=== PATIENT | female | born 1960 ===

== ENCOUNTER 2025-03-23 08:10 | Outpatient (AMB) | payer BC, SELFPAY ==
--- OUTSIDE RECORDS SUMMARY | 2025-03-23 08:40 | XMS_ITS ---
Author Name [facility] Organization Unknown Care Team Organization Name Specialty Phone Email Start Date End Da te [facility] ERIC HOUSER Primary Care 05/28/2022 03/08/2024
--- OUTSIDE RECORDS SUMMARY | 2025-03-23 08:40 | XMS_ITS | Clinical Summary ---
Author Organization [facility] [address] [facility] lding Address [address] [place] [address] Phone Care Team Providers Care [facility] [employer] Name Role Phone Liberty Arriaga MD Primary Care Prov ider Allergies Active Allergy Reactions Criticality Noted Date Comments Famotidine Other Medium 08/28/2022 Reports facial swelling Other 11/15/2015 Yeast Seasonal allergies Sulfamethoxazole-Trimethopr im 11/15/2015 Medications pantoprazole (PROTONIX) 20 mg EC tablet Take 1 Tablet by mouth daily. Take in am on empty stomach, wait 30 mins and then eat to activate the medication 4 Active cholecalciferol (VITAMIN D-3) 25 mcg (1,000 unit) capsule Take by mouth. A ctive MULTIVITAMIN ORAL Take by mouth. Activ e albuterol HFA (ProAir HFA) 90 mcg/actuation inhalerIndicati ons:Acute cough Inhale 2 puffs by mouth every 4 (four) hours if needed for wheezing. 8.5 g 5 09/02/19 26 Active ketoconazole (NIZORAL) 2 % shampoo WASH IN SCALP TWO TO THREE TIMES PER WEEK. LET SIT FOR FIVE MINUTES, THEN WASH OUT. AVOID EYES 4 Active losartan (COZAAR) 50 mg tablet Take 1 tablet (50 mg total) by mouth 1 (one) time each day. 90 each 1 5 04/19/20 25 Active sertraline (ZOLOFT) 50 mg tablet Take 1 tablet (50 mg total) by mouth 1 (one) time each day. 90 each 1 5 04/19/20 25 Active spironolactone (ALDACTONE) 25 mg tablet Take 1 tablet (25 mg total) by mouth 1 (one) time each day. 90 each 1 5 04/19/20 25 Active atorvastatin (LIPITOR) 10 mg tablet Take 1 tablet (10 mg total) by mouth 1 (one) time each day. 90 each 1 5 04/19/20 25 Active nitrofurantoin, macrocrystal-mo nohydrate, (MACROBID) 100 mg capsule Take 1 capsule (100 mg total) by mouth 2 (two) times a day for 7 days. 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 Overview (06/30/2024): Right inferior mid eyelid follows with derm Seasonal allergies 11/21/2020 Hypokalemia 03/30/2019 Bilateral thumb pain 09/24/2018 Class 1 obesity 03/19/2018 Obstructive sleep apnea 02/23/2018 Overview (06/30/2024): [facility] Home Polysomnogram: Date 02/17/2018; AHI 20, Unclassified apneas 5; Obstructive apneas 27; Central apneas 0; Mixed apneas 0; hypopneas 121; average oxygen saturation 94% (lowest 86% without saturations <88% for 5% or more of study) - Obstructive Sleep Apnea - moderate; mostly hypopneas with obstructive apneas; without sleep related hypoventilation by 2018 home polysomnogram. Abnormal brain MRI 09/30/2017 Overview (06/30/2024): Sees Dr Mukherjee. Likely meningioma Tinea versicolor 05/05/2016 Depression 11/15/2015 Rosacea 11/15/2015 Anemia 10/19/2015 Dyslipidemia 10/19/2015 HTN (hypertension) 10/19/2015 Encounters Date Type Department Care Team Description 02/14/2025 2:30 PM EDT Office Visit [address] [phone] Mari Wynne PA UTI symptoms (Primary Dx); Frequent UTI; Urinary incontinence, unspecified type; Urinary tract infection without hematuria, site unspecified 02/14/[address] [phone] Liberty Bailey MD 12/27/2024 9:00 AM EDT Office Visit [address] [phone] Tip De Los Santos PA Dysuria (Primary Dx) 12/27/2024 Telephone Adult [address] [phone] Liberty Bailey MD from Last 3 Months Immunizations Name Administration Dates Next Due Influenza trivalent, 0.5mL, preservative free (Fluarix; FluLaval; Fluzone) ages 6mo and older (Afluria) 3 years and older 06/01/2020 Influenza, Unspecified 04/03/2022,06/04/2021,04/2018 Pfizer (ages 12 & older) Bivalent, COVID-19 04/21 Pfizer SARS-CoV-2 COVID-19, mRNA, LNP-S, preservative free 06/30/2021 Tdap Tetanus diptheria acell ular pertussis (Boostrix; Adacel) 7yo and older 09/04/2016 Zoster recombinant (Shingrix ) 19yo and older 06/12/2019,04/12/2019 Surgical History Surgery Date Site/Laterality Comments OTHER SURGICAL HISTORY 09/28/12 PROCEDURE: OUTSIDE PAP SMEAR Medical History Medical History Date Comments HTN (hypertension) 10/19/2015 DX:HTN (hyper tension) Dyslipidemia 10/19/2015 DX:Dyslipidemia Anemia 10/19/2015 DX:Anemia Vitamin D deficiency 10/19/2015 DX:Vitamin D deficiency Tinea versicolor 05/05/2016 DX:Tinea versic olor Abnormal brain MRI 09/30/2017 DX:Abnormal b rain MRI; COMMENT: Sees Dr Mukherjee. 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 DX:Androgeni c alopecia Bilateral thumb pain 09/24/2018 DX:Bilatera l thumb pain Class 1 obesity 03/19/2018 DX:Class 1 obesi ty Depression 11/15/2015 DX:Depression Hypokalemia 03/30/2019 DX:Hypokalemia Obstructive sleep apnea 02/23/2018 DX:Obstr uctive sleep apnea; COMMENT: [facility] Home Polysomnogram: Date 02/17/2018; AHI 20, Unclassified apneas 5; Obstructive apneas 27; Central apneas 0; Mixed apneas 0; hypopneas 121; average oxygen saturation 94% (lowest 86% without saturations <88% for 5% or more of study) - Obstructive Sleep Apnea - moderate; mostly hypopneas with obstructive apneas; without sleep related hypoventilation by 2018 h* Rosacea 11/15/2015 DX:Rosacea Esophageal reflux DX:Esophageal reflux Epigastric discomfort DX:Epigast terri discomfort Globus sensation DX:Globus sensa tion Abdominal cramping DX:Abdominal cramping Gassiness DX:Gassiness Uterine polyp DX:Uterine polyp PND (post-nasal drip) DX:PND (po st-nasal drip) GERD (gastroesophageal reflu x disease) DX:GERD (gastroesophageal re flux disease) Family History Medical History Relation Name Comments Heart attack Father in his 70s Colon polyps Mother Diabetes Mother Other cancer Mother Other: pancreatic cancer Mother Relation Name Status Comments Father Mother pancreatic a, l ess than 10 polyps Social History Tobacco Use Types Packs/Day Years Used Date Smoking Tobacco: Never Smokeless Tobacco: Never Tobacco Cessation:Counseling Given: Not Answered Alcohol Use Standard Drinks/Week Comments No 0 (1 standard drink = 0.6 oz pur e alcohol) Comments No Sex and Gender Information Value Date Recorded Sex Assigned at Female 07/25/2024 11:00 AM EST Legal Sex Female 8:36 PM EST Gender Identity Female 07/25/2024 11:00 AM EST Sexual Orientation Straight 07/25/2024 11 :00 AM EST Obstetrics History Last Filed Vital Signs Vital Sign Reading Time Taken Comments Blood Pressure 110/70 02/14/2025 2:38 PM EDT Pulse 77 02/14/2025 2:38 PM EDT Temperature 36.6 C (97.9 F) 02/14/2025 2:38 PM EDT Respiratory Rate - - Oxygen Saturation 99% 11/19/2024 11:30 AM EDT Inhaled Oxygen Concentration - - Weight 79.5 kg (175 lb 3.2 oz) 02/14/2025 2:38 P M EDT Height 157.5 cm (5' 2 ) 02/14/2025 2:38 PM EDT Body Mass Index 32.04 02/14/2025 2:38 PM EDT Plan of Treatment Upcoming Encounters Date Type Department Care Team (Late st Contact Info) Description 04/21/2025 4:00 PM EDT Office Visit Adult Medicine [facility] [address] [place] [phone] Mari Wynne, LUDY [address] [place] [address] 05/18/2025 9:00 AM EDT Office Visit Urogynecology [id number] [place] [phone] Leslie Templeton MD [address] [facility] [address] [place] [address] Health Maintenance Due Date Last Done Comments Breast Cancer Screening 1960 Pneumococcal Vaccine: 50+ Years (1 of 1 - PCV) 2012 HIV Screening 06/29/2022 Social Influencers of Health Screening 06/29/2022 Cervical Cancer Screening: Pap Smear 04/05/2023 04/05/2020 Depression Screening 07/21/2024 COVID-19 Vaccine ( season) 2025 05/09/2023, 05/17/2022, 06/30/2021, Additional history exists Influenza Vaccine (#1) 2025 , 05/09/2023, 04/04/2022, Additional history exists Hypertension/CHF/CAD Annual BMP Blood Test 11/18/2025 11/18/2024, 04/29/2024, 04/29/2024, Additional history exists Colorectal Cancer Screening: Colonoscopy 12/26/2025 12/26/2020 DTaP,Tdap,and Td Vaccines (2 - Td or Tdap) 09/04/2026 09/04/2016 Cholesterol Screening (Lipid Panel) 04/22/2029 04/22/2024, 04/22/2024 RSV Immunization Adult Patients (1 - 1-dose 75+ series) 2037 Hepatitis C Screening Completed 01/27/2017 Zoster Vaccines Completed 06/12/2019, 04/12/2019 HIB Vaccines Aged Out No longer eligi ble based on patient's age to complete this topic HPV Vaccines Aged Out No longer eligi ble based on patient's age to complete this topic Hepatitis A Vaccines Aged Out No long er eligible based on patient's age to complete this topic Hepatitis B Vaccines Aged Out No long er eligible based on patient's age to complete this topic IPV Vaccines Aged Out No longer eligi ble based on patient's age to complete this topic MMR Vaccines Aged Out No longer eligi ble based on patient's age to complete this topic Meningococcal ACWY Vaccine Aged Out N o longer eligible based on patient's age to complete this topic Meningococcal B Vaccine Aged Out No l onger eligible based on patient's age to complete this topic RSV Immunization Patients Under 20 months Aged Out No longer eligible based on patient's age to complete this topic Varicella Vaccines Aged Out No longer eligible based on patient's age to complete this topic Procedures Procedure Name Priority Date/Time Associated Diagnosis Comments MATUTE URINE CULTURE TUBE Routine 02/14/2025 4:15 PM EDT UTI symptoms URINALYSIS WITH REFLEX MICROSCOPIC AND CULTURE Routine 02/14/2025 4:15 PM EDT UTI symptoms URINALYSIS WITH REFLEX MICROSCOPIC AND CULTURE Routine 02/14/2025 4:15 PM EDT UTI symptoms CULTURE URINE Routine 02/14/2025 4:15 PM EDT UTI symptoms POC URINE NON-AUTO W/O MICRO Routine 02/14/2025 2:51 PM EDT UTI symptoms URINALYSIS WITH REFLEX MICROSCOPIC AND CULTURE Routine 12/27/2024 9:27 AM EDT Dysuria CULTURE URINE Routine 12/27/2024 9:27 AM EDT Dysuria POC URINE NON-AUTO W/O MICRO Routine 12/27/2024 8:56 AM EDT Dysuria COMPREHENSIVE METABOLIC PANEL Routine 11/18/2024 8:40 AM EDT Hypertension, unspecified type LIPID PANEL Routine 04/22/2024 HM COLONOSCOPY Routine 12/26/2020 HM PAP SMEAR Routine 04/05/2020 HM HEPATITIS C SCREENING Routine 01/27/2017 from Last 3 Months or Most Recently Relevant to Health Maintenance Results * (ABNORMAL) Urinalysis with reflex microscopic and culture (02/14/2025 4:15 PM EDT) Only the most recent of2 resultswithin the time period is included. Specific [place] Urine 1.025 1.003 - 1.030 LAB URINALYSIS - AUTOMATED METHOD 02/14/2025 8:48 PM EDT [facility] pH, Urine 6.0 5.0 - 8.0 pH LAB URINALYSIS - AUTOMATED METHOD 02/14/2025 8:48 PM EDT [facility] Leukocytes, Urine Moderate(A) Negative LAB URINALYSIS - AUTOMATED METHOD 02/14/2025 8:48 PM EDT [facility] Nitrite, Urine Negative Negative LAB URINALYSIS - AUTOMATED METHOD 02/14/2025 8:48 PM [facility] Protein, Urine 100(A) <=Trace mg/dL LAB URINALYSIS - AUTOMATED METHOD 02/14/2025 8:48 PM [facility] Glucose, Urine Negative Negative mg/dL LAB URINALYSIS - AUTOMATED METHOD 02/14/2025 8:48 PM [facility] Ketones, Urine Negative Negative mg/dL LAB URINALYSIS - AUTOMATED METHOD 02/14/2025 8:48 PM [facility] Urobilinogen , Urine 0.2 0.2 - 1.0 mg/dL LAB URINALYSIS - AUTOMATED METHOD 02/14/2025 8:48 PM [facility] Bilirubin, Urine Negative Negative LAB URINALYSIS - AUTOMATED METHOD 02/14/2025 8:48 PM [facility] Blood, Urine Large(A) Negative LAB URINALYSIS - AUTOMATED METHOD 02/14/2025 8:48 PM [facility] RBC, Urine 1,302.3(H) 0 - 4 /HPF LAB URINALYSIS - AUTOMATED METHOD 02/14/2025 8:48 PM [facility] WBC, Urine 724.8(H) 0 - 4 /HPF LAB URINALYSIS - AUTOMATED METHOD 02/14/2025 8:48 PM [facility] Squamous Epithelial, Urine 5 0 - 60 /LPF LAB URINALYSIS - AUTOMATED METHOD 02/14/2025 8:48 PM [facility] Bacteria, Urine Many(A) Negative /HPF LAB URINALYSIS - AUTOMATED METHOD 02/14/2025 8:48 PM [facility] Hyaline Casts, Urine 1.3 0 - 3 /LPF LAB URINALYSIS - AUTOMATED METHOD 02/14/2025 8:48 PM [facility] Urine Urine specimen obtained by clean catch procedure / Unknown Non-blood Collection / Unknown 02/14/2025 4:15 PM EDT 02/14/2025 4:15 PM EDT Mari BOSTON LAB URINE ORDERABLES Final Result Performing Organization Address [facility]/ZIP Co de Phone Number [facility] [address] [place] [address], [place] [phone] * [place] urine culture tube (02/14/2025 4:15 PM EDT) Extra Tube Hold for add-ons. 02/14/2025 6:01 PM EDT [facility] Comment:Auto resulted. Urine Urine specimen obtained by clean catch procedure / Unknown Non-blood Collection / Unknown 02/14/2025 4:15 PM EDT 02/14/2025 4:15 PM EDT Mari Wynne [place] LAB URINE ORDERABLES Final Result Performing Organization Address [facility]/ZIP Co de Phone Number [facility] [address] [place] [address], [place] [phone] * (ABNORMAL) Culture urine (02/14/2025 4:15 PM EDT) Only the most recent of2 resultswithin the time period is included. Culture, Urine >=100,000 CFU/mL Escherichia coli(A) LITO 02/16/2025 10:23 AM EDT [facility] Urine Urine specimen obtained by clean catch procedure / Unknown Non-blood Collection / Unknown 02/14/2025 4:15 PM EDT 02/14/2025 8:48 PM EDT Narrative Organism Antibiotic Method Susceptibility Escherichia coli Amoxicillin/Clavulanate LITO <=2 ug/ml: Susceptible Escherichia coli Ampicillin/Sulbactam LITO <=2 ug/ml: Susceptible Escherichia coli Piperacillin/Tazobactam LITO <=4 ug/ml: Susceptible Escherichia coli Cefazolin (Urine) LITO 2 ug/ml: Susceptible Escherichia coli Cefoxitin LITO <=4 ug/ml: Susceptible Escherichia coli Ceftazidime LITO <=0.5 ug/ml: Susceptible Escherichia coli Ceftriaxone LITO <=0.25 ug/ml: Susceptible Escherichia coli Cefepime LITO <=0.12 ug/ml: Susceptible Escherichia coli Meropenem LITO <=0.25 ug/ml: Susceptible Escherichia coli Amikacin LITO 2 ug/ml: Susceptible Escherichia coli Gentamicin LITO <=1 ug/ml: Susceptible Escherichia coli Ciprofloxacin LITO <=0.06 ug/ml: Susceptible Escherichia coli Levofloxacin LITO <=0.12 ug/ml: Susceptible Escherichia coli Nitrofurantoin LITO <=16 ug/ml: Susceptible Escherichia coli Trimethoprim/Sulfamethoxazole LITO <=20 ug/ml: Susceptible Mari BOSTON LAB MICROBIOLOGY - GENERAL ORDERABLES Final Result [facility] [address] [place] [address], [place] [phone] * (ABNORMAL) POC Urine Non-Auto W/O Micro (02/14/2025 2:51 PM EDT) Only the most recent of2 resultswithin the time period is included. Leukocytes UA POC Positive(A) Negative Nitrite UA POC Negative Negative Urobilinogen UA POC Negative Negative Protein UA POC Positive(A) Negative PH UA POC 6.0 5.0 - 9.0 Blood UA POC Positive(A) Negative, Trace Specific [place] UA POC 1.030 1.001 - 1.035 Ketones UA POC Negative Negative Bilirubin UA POC Negative Negative Glucose UA POC Normal Normal, Trace Urine Urine specimen obtained by clean catch procedure / Unknown 02/14/2025 2:51 PM EDT Mari BOSTON POINT OF CARE TEST ENTER/E DIT ORDERABLES Final Result * (ABNORMAL) Comprehensive metabolic panel (11/18/2024 8:40 AM EDT) Pathologist [facility] Sodium 138 133 - 145 mmol/L LAB CHEMISTRY METHOD 11/18/2024 1:36 PM EDT [facility] Potassium 4.4 3.5 - 5.5 mmol/L LAB CHEMISTRY METHOD 11/18/2024 1:36 PM [facility] Chloride 104 96 - 110 mmol/L LAB CHEMISTRY METHOD 11/18/2024 1:36 PM [facility] CO2 27 21 - 32 mmol/L LAB CHEMISTRY METHOD 11/18/2024 1:36 PM [facility] Anion Gap 7 3 - 11 LAB CHEMISTRY METHOD 11/18/2024 1:36 PM [facility] Glucose 103(H) 70 - 100 mg/dL LAB CHEMISTRY METHOD 11/18/2024 1:36 PM [facility] BUN 13 5 - 25 mg/dL LAB CHEMISTRY METHOD 11/18/2024 1:36 PM [facility] Creatinine 0.80 0.50 - 1.10 mg/dL LAB CHEMISTRY METHOD 11/18/2024 1:36 PM [facility] eGFR 83 >=60 mL/min/1. 73m2 LAB CHEMISTRY METHOD 11/18/2024 1:36 PM [facility] Comment:Calculation based on the Chronic Kidney Disease Epidemiology Collaboration (CKD-EPI) equation refit without adjustment for race. BUN/Creatinine Ratio 16.3 LAB CHEMISTRY METHOD 11/18/2024 1:36 PM [facility] Calcium 9.6 8.5 - 10.5 mg/dL LAB CHEMISTRY METHOD 11/18/2024 1:36 PM [facility] AST (SGOT) 27 10 - 42 unit/L LAB CHEMISTRY METHOD 11/18/2024 1:36 PM [facility] ALT (SGPT) 47 10 - 60 unit/L LAB CHEMISTRY METHOD 11/18/2024 1:36 PM [facility] Alkaline Phosphatase 95 42 - 121 unit/L LAB CHEMISTRY METHOD 11/18/2024 1:36 PM [facility] Total Protein 7.5 6.0 - 8.0 g/dL LAB CHEMISTRY METHOD 11/18/2024 1:36 PM EDT [facility] Albumin 4.2 3.2 - 5.0 g/dL LAB CHEMISTRY METHOD 11/18/2024 1:36 PM EDT [facility] Total Bilirubin 0.6 0.0 - 1.4 mg/dL LAB CHEMISTRY METHOD 11/18/2024 1:36 PM EDT [facility] Blood Venous blood specimen / Unknown Venipuncture / Unknown 11/18/2024 8:40 AM EDT 11/18/2024 8:40 AM EDT Mari BOSTON LAB BLOOD ORDERABLES Final Result [facility] [address] [place] [address], * (ABNORMAL) Lipid panel (04/22/2024) [facility] LDL/HDL Ratio 3 0 - 4 Triglycerides 177(A) 0 - 150 mg/dL Cholesterol 159 0 - 200 mg/dL HDL 49 >=40 mg/dL LDL Cholesterol 75 0 - 100 mg/dL Blood Venous blood specimen / Unknown [facility] Provider LAB BLOOD ORDERABLES Connie l Result * Colonoscopy (12/26/2020) [facility] Colonoscopy no interpretation , abstracted Anatomical Region Laterality Modality Other Historical Provider HEALTH MAINTENANCE Final Result * Pap Smear (04/05/2020) [facility] Pap smear no interpretation , abstracted Historical Provider HEALTH MAINTENANCE Final Result * Hepatitis C Screening (01/27/2017) [facility] Hepatitis C Screening Abstracted Historical Provider HEALTH MAINTENANCE Final Result from Last 3 Months or Most Recently Relevant to Health Maintenance Insurance [facility] Care Teams Regional [employer] Driver Relationship Specialty Start Date End Date Liberty Arriaga MD [address] [place] [phone] PCP - General Internal Medicine 01/09/21
--- OUTSIDE RECORDS SUMMARY | 2025-03-23 08:40 | XMS_ITS | Clinical Summary ---
Author Organization [facility] Address [address] [facility] [address] [place] [phone] Phone Care Team Providers Care Shotgun Shell Assembly Machine Operator Name Role Phone Liberty Arriaga MD Primary Care Pr ovider Allergies Active Allergy Reactions Criticality Noted Date Comments Famotidine Medium 08/28/2022 Other Reaction(s): OTHER Reports facial swelling Other 12/10/2018 Yeast allergy, Seasonal allergies Sulfa (Sulfonamide Antibiotics) Rash Low 12/10/2018 Medications multivitamin-Ca -iron-minerals Tab Take by mouth. Activ e cholecalciferol , vitamin D3, 1,000 unit capsule Take by mouth. Activ e losartan (COZAAR) 50 MG tablet Take 50 mg by mouth daily. 9 Active sertraline (ZOLOFT) 50 MG tablet Take 50 mg by mouth. 9 Active spironolactone (ALDACTONE) 25 MG tablet 0 Active pantoprazole (PROTONIX) 20 MG tablet Take 20 mg by mouth daily. 2 Active estradioL (ESTRACE) 0.01 % (0.1 mg/gram) vaginal creamIndication s:Vaginal atrophy Place 1 g vaginally 2 (two) times a week. 42.5 g 5 Active atorvastatin (LIPITOR) 10 MG tablet Take 10 mg by mouth daily. Active Active Problems Problem Noted Date Diagnosed Date Vaginal atrophy 07/18/2021 Assessment & Plan (12/10/2024 4:50 PM EDT): She is only using the Estrace cream 1-2 times per week. I recommend that she use it more regularly at least 2 times per week and can even increase to 3 times per week as she may receive some benefit from doing so. She just had a recent refill on the Estrace cream. Assessment & Plan (07/18/2021 10:22 PM EST): She has a history of vaginal dryness and dysparuenia. She has not used Estrace cream in a couple of months. She would like to restart it which is reasonable. I explained that during the first week of use she could use it 4-5 times and then back off to twice weekly thereafter. Endometrial polyp PMB (postmenopausal bleeding) Immunizations Immunization Administration Dates Next Due COVID-19 (Pre-05/12) Pfizer Vaccine, mRNA, PF ,10/09/2020 INFLUENZA, SPLIT VIRUS, TRIVALENT W/ PRESERVATIV E IM 04/14/2021 Influenza Quadrivalent Preservative Free IM 05/21 Influenza, Unspecified Formulation 06/04/2021, Tdap 09/04/2016 Zoster recombinant 06/12/2019,04/12/2019 Family History Medical History Relation Comments Autism spectrum disorder Daughter Heart attack Father Diabetes type II Mother Pancreatic cancer Mother age 80 - 2017 No Known Problems Sister Relation Status Comments Daughter Alive Father Alive Mother Sister Alive Social History Tobacco Use Types Packs/Day Years Used Date Smoking Tobacco: Never Smokeless Tobacco: Never Tobacco Cessation:Counseling Given: Not Answered Alcohol Use Standard Drinks/Week Comments Never 0 (1 standard drink = 0.6 oz pur e alcohol) Education Answer Date Recorded Are you interested in more education? Not on leslee e 11/15/2022 Are you concerned about learning? Not on file 11/15/2022 No 11/15/2022 No 11/15/2022 Digital Access Answer Date Recorded No 12/14/2022 No 12/14/2022 Reliable internet access at home? Not on file 12/14/2022 Device with a working camera? Not on file Intimate Partner Violence Answer Date R ecorded Are you denied basic needs s uch as food, clothing, or medical care? No 07/12/2022 In the past 12 months have y ou been in a relationship with a person who hurts, threatens, or tries to control you? No 07/12/2022 Are you denied basic needs s uch as food, clothing, or medical care? No 07/12/2022 In the past 12 months have y ou been in a relationship with a person who hurts, threatens, or tries to control you? 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 Not on file Not on file Last Filed Vital Signs Vital Sign Reading Time Taken Comments Blood Pressure 126/84 12/10/2024 4:31 PM EDT Pulse 59 07/12/2022 9:01 AM EST Temperature 36.9 C (98.4 F) 07/12/2022 10:45 AM EST Respiratory Rate 16 07/12/2022 9:01 AM EST Oxygen Saturation 96% 07/12/2022 11:29 AM EST Inhaled Oxygen Concentration - - Weight 79.4 kg (175 lb) 12/10/2024 4:31 PM EDT Height 157.5 cm (5' 2 ) 09/11/2023 2:29 PM EST Body Mass Index 32.01 09/11/2023 2:29 PM EST Plan of Treatment Health Maintenance Due Date Last Done Comments CREATININE LEVEL 1960 POTASSIUM LEVEL 1960 DEPRESSION SCREENING 1974 HEPATITIS C SCREENING 1980 HIV ONE-TIME SCREENING (18-65 YEARS) 1980 SCREENING FOR DIABETES 1997 COLOGUARD 10/13/2007 COLONOSCOPY 10/13/2007 COLORECTAL CANCER SCREENING 10/13/2007 FIT TEST 10/13/2007 FOBT 10/13/2007 SIGMOIDOSCOPY 10/13/2007 VIRTUAL COLONOSCOPY 10/13/2007 PNEUMOCOCCAL VACCINES (50+ years) (1 of 1 - PCV) 2012 MAMMOGRAM 03/28/2022 03/28/2020, 12/28/2017 INFLUENZA VACCINE (#1) 2025 4, 05/09/2023, 04/04/2022, Additional history exists COVID-19 VACCINE ( season) 2025 05/09/2023, 05/17/2022, 06/30/2021, Additional history exists Adult Td,Tdap Booster 09/04/2026 09/04/2016 PAP SMEAR 05/08/2027 05/08/2022, 11/19, 12/02/2017 LIPID PANEL 04/22/2029 04/22/2024, 08/21, 05/30/2022, Additional history exists RSV VACCINE (1 - 1-dose 75+ series) 2037 ZOSTER VACCINES Completed 06/12/2019, 04/12/2019 SMOKING STATUS SCREENING (Once After 26 Yrs) Completed 12/10/2024 HEPATITIS A VACCINES Aged Out No long er eligible based on patient's age to complete this topic HIB VACCINES Aged Out No longer eligi ble based on patient's age to complete this topic MENINGOCOCCAL VACCINES (ACWY) Aged Out No longer eligible based on patient's age to complete this topic MENINGOCOCCAL VACCINES (B) Aged Out N o longer eligible based on patient's age to complete this topic Medical Devices Not on file Procedures Procedure Name Priority Date/Time Associated Diagnosis Comments PAP TEST Routine 05/08/2022 12:00 AM EDT HM MAMMOGRAPHY Routine 03/28/2020 from Last 3 Months or Most Recently Relevant to Health Maintenance Results * Pap Smear (05/08/2022 12:00 AM EDT) 05/08/2022 05/09/2022 9:5 4 AM EDT Narrative SEE NARRATIVE - 05/17/2022 11:35 AM EDT [address] [address] Mold Burner: Gladys Crenshaw MD BED CONTROL SPECIALIST Cytology Report FINAL DIAGNOSIS A. PAP SMEAR (SUREPATH) CE: SPECIMEN ADEQUACY: Satisfactory for evaluation; transformation zone present. INTERPRETATION: NEGATIVE FOR INTRAEPITHELIAL LESION OR MALIGNANCY. Electronically Signed Out By: CHARISSE Baron(ASCP) CHARISSE Harrell(ASCP) The Pap test is a screening test primarily for squamous cancers and precursors and has associated false-negative and false-positive results. New technologies such as liquid-based preparations may decrease but will not eliminate all false-negative results. Regular sampling and follow-up of unexplained clinical signs and symptoms are recommended to minimize false negative results. PROCEDURES/ADDENDA HPV Testing (Requested) Ordered Date: 05/09/2022 A. PAP SMEAR (SUREPATH) CE: Human Papilloma Virus Test Negative for high-risk human papillomavirus types 16, 18, 45 and the Other high risk probe set (Includes 31, 33, 35, 39, 51, 52, 56, 58, 59, 66, 68) by [employer] HR-HPV analysis. Clinical correlation is advised. This HPV test was performed at [facility], [address] [place] [address]. This test has been FDA approved for SurePath cervical cytology specimens. The accuracy and precision of this test for all other specimen sources has been verified in the Cytopathology Laboratory of the [facility] and has not been cleared or approved by the U.S. Food and Drug Administration. Clinical correlation is advised. CLINICAL HISTORY Date of Last Menstrual Period: Not Provided Menstrual History: Post Menopausal Bleeding, PM Other Clinical Conditions: Screening Pap SPECIMEN SOURCE A: PAP SMEAR (SUREPATH) CE Patient Name: REYNA DELEON : 1960 (Age: 61) Sex: F Institution: [facility] Location: [facility] Date of Collection: 05/08/2022 Date of Reported: 05/17/2022 11:35 Results to: Vijay Shaw MD, BS us Vijay Shaw MD CYTOLOGY ORDERABLES Final Res ult SEE NARRATIVE * HM MAMMOGRAPHY FOR RESULT ENTRY ONLY (03/28/2020) us Alejandrina Crump MD HEALTH MAINTENANCE F inal Result from Last 3 Months or Most Recently Relevant to Health Maintenance Insurance [facility] [facility] [id number] [place] [address] [facility] [place]: [facility] [id number] [place] [address] [facility] Address: [facility] [id number] [place] [address] [facility] Advance Directives For more information, please contact: [phone] (9AM - 5PM [facility], Friday-Friday) Documents on File Type Date Recorded Patient Road Commissioner Expl anation Healthcare Proxy 07/17/2022 1:13 PM * Full Code (Latest Code Status on File) Date Activated Date Inactivated Comments 07/12/2022 9:16 AM Question Answer Comments Code Status Confirmed With: Patient Care Teams Shotgun Shell Assembly Machine Operator Relationship Specialty Start Date End Date Liberty Arriaga MD [address] [place] [phone] PCP - General Internal Medicine 12/10/24 Additional Source Comments The information contained in this document represents components of the legal health record. It is not the complete legal health record.[facility]
--- OUTSIDE RECORDS SUMMARY | 2025-03-23 08:40 | XMS_ITS | Encounter Summary ---
Author Organization [facility] Address [address] [place] [address] Phone Care Team Providers Care Zoning Engineer Name Role Phone [place] Kristen Dasilva MD Primary Care Provider Liberty Arriaga MD Primary Care Pr ovider Encounter Details Date Type Department Care Team (Late st Contact Info) Description 07/12/2022 Procedure Pass OR Admitting Dept - Virtual Department [address] [place] [address] Social History Tobacco Use Types Packs/Day Years Used Date Smoking Tobacco: Never Smokeless Tobacco: Never Alcohol Use Standard Drinks/Week Comments Never 0 (1 standard drink = 0.6 oz pur e alcohol) Intimate Partner Violence Answer Date R ecorded Are you denied basic needs s [facility] as food, clothing, or medical care? 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 It is not the complete legal health record.[facility]
== END 2025-03-23 09:00 | disposition home or self-care (01) ==
LOC: HO.HMGAL 08:10
PROVIDERS: PCP Internal Medicine; Visit Provider Registered Nurse Emergency
DX: J30.89 Other allergic rhinitis (principal)
CPT/HCPCS: 95117; 95165

== ENCOUNTER 2025-04-06 08:11 | Outpatient (AMB) | payer BC, SELFPAY ==
--- OUTSIDE RECORDS SUMMARY | 2025-04-06 09:06 | XMS_ITS | Clinical Summary ---
Author Organization [facility] [address] [facility] Address [address] [place] [address] Phone Care Team Providers Care Associate Professor Of Kinesiology Name Role Phone Liberty Arriaga MD Primary [...] 90 each 1 5 04/19/20 25 Active Active Problems Problem Noted Date Diagnosed [...] 03/19/2018 Obstructive sleep apnea 02/23/2018 Overview (06/30/2024): [facility] Home Polysomnogram: Date 02/17/2018; AHI 20, Unclassified [...] Description 02/14/2025 2:30 PM EDT Office Visit [facility] [address] [place] [address] Mari Wynne PA UTI symptoms (Primary Dx); Frequent UTI; Urinary incontinence, unspecified type; Urinary tract infection without hematuria, site unspecified 02/14/2025 Telephone [facility] [address] [place] [address] Liberty Bailey MD from Last 3 Months [...] apnea 02/23/2018 DX:Obstr uctive sleep apnea; COMMENT: SMS Home Polysomnogram: Date 02/17/2018; AHI 20, Unclassified apneas 5; Obstructive apneas 27; Central apneas 0; Mixed apneas 0; hypopneas 121; average oxygen saturation 94% (lowest 86% without saturations <88% for 5% or more of study) - Obstructive Sleep Apnea - moderate; mostly hypopneas with obstructive apneas; without sleep related hypoventilation by 2017 h* Rosacea 11/15/2015 DX:Rosacea Esophageal reflux DX:Esophageal [...] 4:00 PM EDT Office Visit Adult Medicine - [place] [address] [place] [address] Tip De Los Santos PA [address] [place] [address] 05/18/2025 9:00 AM EDT Office Visit Urogynecology - [place] [address] [place] [address] Leslie Templeton MD [address] [facility] [address] [place] [address] Health Maintenance Due Date Last Done Comments [...] Routine 02/14/2025 2:51 PM EDT UTI symptoms COMPREHENSIVE METABOLIC PANEL Routine 11/18/2024 8:40 AM EDT Hypertension, unspecified type LIPID PANEL Routine 04/22/2024 HM COLONOSCOPY Routine 12/26/2020 HM PAP SMEAR Routine 04/05/2020 HEPATITIS C SCREENING Routine 01/27/2017 from Last 3 Months or Most Recently Relevant to Health Maintenance Results * (ABNORMAL) Urinalysis with reflex microscopic and culture (02/14/2025 4:15 PM EDT) Specific [place] Urine 1.025 1.003 - 1.030 LAB URINALYSIS - AUTOMATED METHOD 02/14/2025 8:48 PM [facility] pH, Urine 6.0 5.0 - 8.0 pH LAB URINALYSIS - AUTOMATED METHOD 02/14/2025 8:48 PM [facility] Leukocytes, Urine Moderate(A) Negative LAB URINALYSIS - AUTOMATED METHOD 02/14/2025 8:48 PM [facility] Nitrite, Urine Negative Negative LAB URINALYSIS - AUTOMATED METHOD 02/14/2025 8:48 PM [facility] Protein, Urine 100(A) <=Trace mg/dL LAB URINALYSIS - AUTOMATED METHOD 02/14/2025 8:48 PM [facility] Glucose, Urine Negative Negative mg/dL LAB URINALYSIS - AUTOMATED METHOD 02/14/2025 8:48 PM [facility] Ketones, Urine Negative Negative mg/dL LAB URINALYSIS - AUTOMATED METHOD 02/14/2025 8:48 PM [facility] Urobilinogen , Urine 0.2 0.2 - 1.0 mg/dL LAB URINALYSIS - AUTOMATED METHOD 02/14/2025 8:48 PM [facility] Bilirubin, Urine Negative Negative LAB URINALYSIS - AUTOMATED METHOD 02/14/2025 8:48 PM [facility] Blood, Urine Large(A) Negative LAB URINALYSIS - AUTOMATED METHOD 02/14/2025 8:48 PM [facility] RBC, Urine 1,302.3(H) 0 - 4 /HPF LAB URINALYSIS - AUTOMATED METHOD 02/14/2025 8:48 PM EDT [facility] WBC, Urine 724.8(H) 0 - 4 /HPF LAB URINALYSIS - AUTOMATED METHOD 02/14/2025 8:48 PM EDT [facility] Squamous Epithelial, Urine 5 0 - 60 /LPF LAB URINALYSIS - AUTOMATED METHOD 02/14/2025 8:48 PM EDT [facility] Bacteria, Urine Many(A) Negative /HPF LAB URINALYSIS - AUTOMATED METHOD 02/14/2025 8:48 PM EDT [facility] Hyaline Casts, Urine 1.3 0 - 3 /LPF LAB URINALYSIS - AUTOMATED METHOD 02/14/2025 8:48 PM EDT [facility] Urine Urine specimen obtained by clean catch procedure / Unknown Non-blood Collection / Unknown 02/14/2025 4:15 PM EDT 02/14/2025 4:15 PM EDT [facility] URINE ORDERABLES Final Result [facility] [address] [place] [address], [place] [phone] * [place] urine culture tube (02/14/2025 4:15 PM EDT) Extra Tube Hold for add-ons. 02/14/2025 6:01 PM EDT [facility] Comment:Auto resulted. Urine Urine specimen obtained by clean catch procedure / Unknown Non-blood Collection / Unknown 02/14/2025 4:15 PM EDT 02/14/2025 4:15 PM EDT [facility] URINE ORDERABLES Final Result [facility] [address] [place] [address], [place] [phone] * (ABNORMAL) Culture urine (02/14/2025 4:15 PM EDT) Culture, Urine >=100,000 CFU/mL Escherichia coli(A) LITO 02/16/2025 10:23 AM EDT [facility] Urine Urine specimen obtained by [...] Escherichia coli Trimethoprim/Sulfamethoxazole LITO <=20 ug/ml: Susceptible us [facility] MICROBIOLOGY - GENERAL ORDERABLES Final Result [facility] [address] [place] [address], * (ABNORMAL) POC Urine Non-Auto W/O Micro (02/14/2025 2:51 PM EDT) Leukocytes UA POC Positive(A) Negative Nitrite UA POC Negative Negative Urobilinogen UA POC Negative Negative Protein UA POC Positive(A) Negative PH UA POC 6.0 5.0 - 9.0 Blood UA POC Positive(A) Negative, Trace Specific [place] UA POC 1.030 1.001 - 1.035 Ketones UA POC Negative Negative Bilirubin UA POC Negative Negative Glucose UA POC Normal Normal, Trace Urine Urine specimen obtained by clean catch procedure / Unknown 02/14/2025 2:51 PM EDT [facility] POINT OF CARE TEST ENTER/E DIT ORDERABLES Final Result * (ABNORMAL) Comprehensive metabolic panel (11/18/2024 8:40 AM EDT) [facility] Sodium 138 133 - 145 mmol/L LAB CHEMISTRY METHOD 11/18/2024 1:36 PM [facility] Potassium 4.4 3.5 - 5.5 mmol/L LAB CHEMISTRY METHOD 11/18/2024 1:36 PM [facility] Chloride 104 96 - 110 mmol/L LAB CHEMISTRY METHOD 11/18/2024 1:36 PM [facility] CO2 27 21 - 32 mmol/L LAB CHEMISTRY METHOD 11/18/2024 1:36 PM [facility] Anion Gap 7 3 - 11 LAB CHEMISTRY METHOD 11/18/2024 1:36 PM [facility] Glucose 103(H) 70 - 100 mg/dL LAB CHEMISTRY METHOD 11/18/2024 1:36 PM [facility] BUN 13 5 - 25 mg/dL LAB CHEMISTRY METHOD 11/18/2024 1:36 PM [facility] Creatinine 0.80 0.50 - 1.10 mg/dL LAB CHEMISTRY METHOD 11/18/2024 1:36 PM [facility] eGFR 83 >=60 mL/min/1. 73m2 LAB CHEMISTRY METHOD 11/18/2024 1:36 PM [facility] Comment:Calculation based on the Chronic Kidney Disease Epidemiology Collaboration (CKD-EPI) equation refit without adjustment for race. BUN/Creatinine Ratio 16.3 LAB CHEMISTRY METHOD 11/18/2024 1:36 PM T [facility] Calcium 9.6 8.5 - 10.5 mg/dL LAB CHEMISTRY METHOD 11/18/2024 1:36 PM [facility] AST (SGOT) 27 10 - 42 unit/L LAB CHEMISTRY METHOD 11/18/2024 1:36 PM [facility] ALT (SGPT) 47 10 - 60 unit/L LAB CHEMISTRY METHOD 11/18/2024 1:36 PM [facility] Alkaline Phosphatase 95 42 - 121 unit/L LAB CHEMISTRY METHOD 11/18/2024 1:36 PM [facility] Total Protein 7.5 6.0 - 8.0 g/dL LAB CHEMISTRY METHOD 11/18/2024 1:36 PM T [facility] Albumin 4.2 3.2 - 5.0 g/dL LAB CHEMISTRY METHOD 11/18/2024 1:36 PM [facility] Total Bilirubin 0.6 0.0 - 1.4 mg/dL LAB CHEMISTRY METHOD 11/18/2024 1:36 PM [facility] Blood Venous blood specimen / Unknown Venipuncture / Unknown 11/18/2024 8:40 AM EDT 11/18/2024 8:40 AM EDT us [facility] BLOOD ORDERABLES Final Result [facility] [address] [place] [address], * (ABNORMAL) Lipid panel (04/22/2024) LDL/HDL Ratio 3 0 - 4 Triglycerides 177(A) 0 - 150 mg/dL Cholesterol 159 0 - 200 mg/dL HDL 49 >=40 mg/dL LDL Cholesterol 75 0 - 100 mg/dL Blood Venous blood specimen / Unknown Historical Provider LAB BLOOD ORDERABLES Connie l Result * Colonoscopy (12/26/2020) Pathologist [facility] Colonoscopy no interpretation , abstracted Anatomical Region Laterality Modality Other [facility] Provider HEALTH MAINTENANCE Final Result * Pap Smear (04/05/2020) Pathologist [facility] Pap smear no interpretation , abstracted Historical Provider HEALTH MAINTENANCE Final Result * Hepatitis C Screening (01/27/2017) Pathologist [facility] Hepatitis C Screening Abstracted Historical Provider HEALTH MAINTENANCE Final Result from Last 3 Months or Most Recently Relevant to Health Maintenance Insurance [facility] Care Teams Associate Professor Of Kinesiology Relationship Specialty Start Date End Date Liberty Arriaga MD [address] [place] [phone] PCP - General Internal Medicine 01/09/21
--- OUTSIDE RECORDS SUMMARY | 2025-04-06 09:06 | XMS_ITS | Encounter Summary ---
Author Organization [facility] Address [address] [place] [address] Phone Care Team Providers Care Cpa Tax Name Role Phone [place] Kristen Dasilva MD Primary Care Provider Liberty Arriaga MD Primary Care Pr ovider Encounter Details Date Type Department Care Team (Late st Contact Info) Description 07/12/2022 Procedure Pass OR Admitting Dept - Virtual Department [address] [place] [address] Social History Tobacco Use Types Packs/Day Years Used Date Smoking Tobacco: Never Smokeless Tobacco: Never Alcohol Use Standard Drinks/Week Comments Never 0 (1 standard drink = 0.6 oz pur e alcohol) Intimate Partner Violence Answer Date R ecorded Are you denied basic needs s [facility] as food, clothing, or medical care? 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 It is not the complete legal health record.[facility]
--- OUTSIDE RECORDS SUMMARY | 2025-04-06 09:06 | XMS_ITS | Clinical Summary ---
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 PAP SMEAR [...] 52, 56, 58, 59, 66, 68) by [employer] HR-HPV analysis. Clinical correlation is advised. This HPV test was performed at [facility], [address] [place] [address]. This test has been FDA approved for SurePath cervical cytology specimens. The accuracy and precision of this test for all other specimen sources has been verified in the Cytopathology Laboratory of the [facility] and has not been cleared or approved by the U.S. Food and Drug Administration. Clinical correlation is advised. CLINICAL HISTORY Date of Last Menstrual Period: Not Provided Menstrual History: Post Menopausal Bleeding, PM Other Clinical Conditions: Screening Pap SPECIMEN SOURCE A: PAP SMEAR (SUREPATH) CE Patient Name: EDWARD DELEON : 1960 (Age: 61) Sex: F Institution: [facility] Location: [facility] Date of Collection: 05/08/2022 Date of Reported: 05/17/2022 11:35 Results to: Vijay Shaw MD, BS us Vijay Shaw MD CYTOLOGY ORDERABLES Final Res ult SEE NARRATIVE * HM MAMMOGRAPHY FOR RESULT ENTRY ONLY (03/28/2020) us Alejandrina Crump MD HEALTH MAINTENANCE F inal Result from Last 3 Months or Most Recently Relevant to Health Maintenance Insurance [facility] Address: [facility] [id number] [place] [address] [facility] Address: [facility] [id number] [place] [address] [facility] Address: [facility] [id number] [place] [address] [facility] Advance Directives For more information, please contact: [phone] (9AM - 5PM [facility], Friday-Friday) Documents on File Type Date Recorded Patient Packer Dried Beef Expl anation Healthcare Proxy 07/17/2022 1:13 PM * Full Code (Latest Code Status on File) Date Activated Date Inactivated Comments 07/12/2022 9:16 AM Question Answer Comments Code Status Confirmed With: Patient Care Teams Printer Slotter Operator Relationship Specialty Start Date End Date Liberty Arriaga MD [address] [place] [id number] PCP - General Internal Medicine 12/10/24 Additional Source Comments The information contained in this document represents components of the legal health record. It is not the complete legal health record.[facility]
== END 2025-04-06 08:13 | disposition home or self-care (01) ==
LOC: HO.HMGAL 08:11
PROVIDERS: PCP Internal Medicine; Visit Provider Registered Nurse Emergency
DX: J30.89 Other allergic rhinitis (principal)
CPT/HCPCS: 95117; 95165

== ENCOUNTER 2025-04-27 08:10 | Outpatient (AMB) | payer BC, SELFPAY | END 2025-04-27 08:34 | disposition home or self-care (01) | LOC: HO.HMGAL 08:10 | PROVIDERS: PCP Internal Medicine; Visit Provider Registered Nurse Emergency | DX: J30.89 Other allergic rhinitis (principal) | CPT/HCPCS: 95117; 95165 ==

== ENCOUNTER 2025-05-18 10:10 | Outpatient (AMB) | payer BC, SELFPAY ==
--- OUTSIDE RECORDS SUMMARY | 2025-05-18 09:00 | XMS_ITS | Encounter Summary ---
Author Organization [facility] Address [address] [place] [address] Care Team Providers Care Character Impersonator Name Role Phone Liberty Arriaga MD Primary Care Prov ider Reason for Referral * Medications - Closed Specialty Diagnoses / Procedures Referred By Alton khoury Referred To Contact Diagnoses Nocturia Urge incontinence Urinary urgency Urinary frequency Leslie Templeton MD [address] [place] [address] Phone: tel: fax: Referral ID Status Reason Start Date Expiration Date Visits Re quested Visits Authorized [id number] Closed 1 1 * Imaging (Routine) - Pending Review Specialty Diagnoses / Procedures Referred By Alton khoury Referred To Contact Radiology Diagnoses Recurrent UTI Procedures US Retroperitoneal Complete Leslie Templeton MD [address] [address] Phone: tel: fax: [facility] Referral ID Status Reason Start Date Expiration Date V isits Requested Visits Authorized [id number] Pending Review 05/18/2025 05/18/2026 1 1 Reason for Visit * Reason Comments new patient * Consultation (Routine) - Authorized Specialty Diagnoses / Procedures Referred By Alton khoury Referred To Contact Urogynecology Diagnoses Frequent UTI Urinary incontinence, unspecified type Mari Wynne PA [address] [place] [address] Phone: tel: fax: Leslie Templeton MD [address] [place] [address] Phone: tel: fax: Referral ID Status Reason Start Date Expiration Date Visits Requested Visits Authorized [id number] Authorized Specialty Services Required 02/14/2025 02/14/2026 6 6 Encounter Details Date Type Department Care Team (Late st Contact Info) Description 05/18/2025 9:00 AM EDT Office Visit Urogynecology [address] [address] Leslie Templeton MD [address] [place] [address] Urge incontinence (Primary Dx); Recurrent UTI; TATYANA (stress urinary incontinence, female); Nocturia; Urinary urgency; Urinary frequency; Genitourinary syndrome of menopause; Microscopic hematuria Social History Tobacco Use Types Packs/Day Years Used Date Smoking Tobacco: Never Smokeless Tobacco: Never Alcohol Use Standard Drinks/Week Comments No 0 (1 standard drink = 0.6 oz pur e alcohol) Comments No Sex and Gender Information Value Date Recorded Sex Assigned at Female 07/25/2024 11:00 AM EST Legal Sex Female 8:36 PM EST Gender Identity Female 07/25/2024 11:00 AM EST Sexual Orientation Straight 07/25/2024 11 :00 AM EST documented as of this encounter Last Filed Vital Signs Vital Sign Reading Time Taken Comments Blood Pressure 102/80 05/18/2025 8:35 AM EDT Pulse 66 05/18/2025 8:35 AM EDT Temperature - - Respiratory Rate - - Oxygen Saturation - - Inhaled Oxygen Concentration - - Weight 78.5 kg (173 lb) 05/18/2025 8:35 AM EDT Height 157.5 cm (5' 2 ) 05/18/2025 8:35 AM EDT Body Mass Index 31.64 05/18/2025 8:35 AM EDT documented in this encounter Ordered Prescriptions Prescription Sig Dispense Quantity Refills Last Filled Start Date End Date cefpodoxime (VANTIN) 100 mg tablet Take 1 tablet (100 mg total) by mouth at bedtime. Take at the time of intercourse to help prevent infections 90 tablet 1 05/18/2025 vibegron (GEMTESA) 75 mg tablet tabletIndications: Nocturia,Urge incontinence,Urina ry urgency,Urinary frequency Take 1 tablet (75 mg total) by mouth 1 (one) time each day. 90 tablet 1 05/18/2025 estradioL (ESTRACE) 0.01 % (0.1 mg/gram) vaginal cream Insert 0.5 g into the vagina 1 (one) time each day. Please place 0.5g (a pea-sized amount) on your finger and place inside the vagina for 2 weeks at night, and then twice a week at night 42.5 g 3 05/18/2025 documented in this encounter Progress Notes * Leslie Templeton MD - 05/18/2025 9:00 AM EDT Microscopic hematuria You had a small amount of blood in your urine today - we will send this to the lab to check for infection and have them count the number of red blood cells - if there are too many red blood cells, I will recommend additional workup, looking inside the bladder with a camera (an office procedure called cystoscopy), and a kidney ultrasound. But, we will already be doing these to evaluate your recurrent UTIs Most of the time I do not find a reason why people have blood in their urine - I will let you know if you ever need to actually worry!! Try to use a Kegels adjunct trainer - the two brands our pelvic floor physical therapist recommends are Perifit and Venessa For your overactive bladder: - Start a bladder control medication (Gemtesa 75mg). This medication can take 4- 6 weeks before it becomes effective. - Start vaginal estrogen cream - Avoid bladder irritants by following a bladder diet (see bladder diet below) - Try to retrain your bladder (see training instructions below) - Improve your bowel function. Constipation can make overactive bladder and urine leakage worse. - Limit fluid consumption to less than 64oz of fluid a day (unless your team assembly line machine operator or other doctor has specifically told you that you need to drink a certain amount of water daily). Drink when you are thirsty, but do not overdrink Drink only enough so your urine is a light yellow color Stop drinking 2 hours before you go to bed - this will help decrease your need to get up during thenight to use the bathroom If this medication is VERY EXPENSIVE, do not pick it up from the pharmacy. Please check with your insurance company or pharmacy to find out which Overactive Bladder medication is covered and affordable for you to use, then contact our office with that information. Overactive Bladder Medications Oxybutynin (Oxybutynin Extended Release, Oxybutynin Immediate Release, Ditropan XL, Ditropan Immediate release) Trospium Immediate release (Sanctura) Trospium Extended release (Sanctura XR) Solifenacin (Vesicare) Tolterodine (Detrol) Fesoterodine (Toviaz) Darifenacin (Enablex) Mirabegron (Myrbetriq) Gemtesa (Vibegron) TIPS FOR MANAGING CONSTIPATION Miralax 17g (1 capful) once a day This is a non-habit forming laxative, and it is safe to take for long periods of time (even years!) Try taking at night for a morning bowel movement You can safely increase or decrease Miralax to what your bowels need; sometimes, people only need 1/2 a capful to have improved bowel function, or even every other day may be enough. Docusate sodium (Colace) 100mg capsule 2 times per day This is a stool softener If you have hard stool, taking docusate sodium is like putting soap around a rock - you will still need to use other modalities to improve your stool consistency Get some exercise! If you move, your bowels move! Probiotics (Align) or Activia yogurt Some patients have a lot of success with probiotics However, they can be expensive, so if you do not have success, just stop taking probiotics! Bladder Diet For some patients with ???overactive bladder??? or other irritative or painful bladder conditions, basic changes to the diet can help to reduce symptoms. Foods and beverages that make the urine more acidic, for instance, are likely to increase urinary urgency and frequency by irritating inflamed areas of the bladder or urethra. Perhaps the most significant bladder irritants are alcohol, caffeinated beverages, and carbonated beverages. Alcoholic Beverages Tomatoes / Tomato Juice Vitamin C Coffee & Tea (even decaf) Apples Vinegar Carbonated Beverages Pineapple & [place] Artificial Sweeteners Ashe & Apple Juice Charlie & Limes Pepper Chocolate Grapefruit & Other Ashe Fruits Nectarines & Peaches Lemon Juice Cranberry Strawberries [place] / Spicy Seasonings Grapes, Peaches, Plums Cantaloupes Bladder Training (Timed Voiding) What is bladder training? Bladder training is about getting rid of bad habits, learning good habits, and putting you back in control of your bladder instead of your bladder controlling you and your life. The goal of a bladder drill is for you to gradually: Increase the length of time between urinating Increase the amount of fluid your bladder can hold Diminish the sense of urgency and/or leakage you experience Your bladder may have taken many weeks, months, or years establishing its bad habits. It will take time, commitment, and patience to train your bladder into good habits. Most people notice some improvement within 2 weeks, although it may take up to 3 months or more to regain bladder control. Begin your bladder retraining program by choosing a time interval (the time between one urinary void to the next) that you can manage successfully, even if that means voiding as often as every 30 or 60 minutes. It is important, for starters, to choose a time interval that you feel will not be too challenging. No ???just in case?? visits to the bathroom between voids! Get up and go to the toilet when you wake in the morning. Then during your waking hours, you should attempt to urinate at the time interval you???ve chosen (for instance, every 60 minutes), whether or not you feel an urge at that moment. It is important that you try to void at that exact interval, whether you feel you need to go or not. This will train your bladder to void ???by the clock??? Try your best to ignore all other impulses to void, if they occur between the specified times. In order to ignore those impulses, you should use urge suppression techniques to mentally distract yourself by removing your thoughts from your bladder (for instance, try counting backwards from 100, by 3???s or 7???s), and physically suppress the urge by performing your strongest pelvic floor contraction (Kegel exercise). Try adam your pelvic muscles quickly and strongly two or three times, then wait for the urge to disappear. If you need help learning an effective Kegel exercise, please askyour doctor or nurse for instructions. Sometimes a positional change can also help, such as changing from the standing to sitting position. When you can manage a regimen like this for a week, increase the time interval by 15-30 minutes. Keep increasing the time interval, on a weekly or monthly basis, until you are voiding at intervals ofapproximately 2 to 3 ?? hours. You will be the best career technical supervisor of how quickly you can advance to the next step. Don???t try to advance too quickly; the process should occur ???slowly but surely over the course of several months. The schedule does not continue through the night. If nighttime urination is a problem, you should restrict fluids after dinner, generally 2 hours before you go to bed. Keeping a diary of your bladder activity is sometimes helpful to monitor your progress. A diary shows you the value of the effort you???re making Bladder drills tend to be an effective strategy in almost all patients with overactive bladder symptoms. Even if you are on another therapy such as medication, we encourage you to try this simple andrisk-free technique. WHY IS BLADDER RETRAINING THERAPY USED? It can help significantly reduce or resolve urge urinary incontinence episodes, feelings of urinaryurgency and frequent trips to the toilet. The main reason to do this is to restore normal bladder functioning. It is christoph to relearning toilet training as a child. On a set timetable, you learn to suppress the feeling of bladder urgency and delay urination. Studies have shown success rates as high as approximately 80% for controlling overactive bladder symptoms when using bladder retraining therapy. HOW IS BLADDER RETRAINING THERAPY DONE? Voluntarily initiating urination and suppressing the urge to urinate reinforce the brain to bladder???communication highway?? . At first, and based on your voiding frequency, you should void ?? hourless than your usual time to urinate. For example, if you usually urinate every 1?? hours you will be instructed to urinate every 1 hour during your waking hours. The reason for this is to reestablish a connection from the brain to the bladder, ???initiate urination?? whether there is an urge present or not. You will do this scheduled voiding during waking hours only and bo it down on a daily on a sheet of paper. Approximately every two to three weeks the interval of time to urinate will incr ease so you will now experience the urge to void. If it is not your scheduled time to urinate you will use to suppress the bladder contraction. Theseare doing a ???Kegel?? contraction (pelvic floor muscle contraction) to inhibit unwanted involuntary bladder contractions. Performing a strong quick muscle contraction can stimulate a reflex to stopthe bladder from adam and therefore prevent urinary urgency and/or leakage. You can also usedistraction as a technique to control these symptoms, such as counting backwards from 100 by 7s (100...93...). It is important to use these techniques. Sometimes you will fail and might leak some urine. You will note this in your bladder diary. It is better to try to suppress an urge and fail then not try and run to toilet. Success with this program depends on your strength to follow the instructions as directed! This therapy lasts several months with periodic visits with the physician or nurse to assess progress, reinforce bladder inhibition techniques and reach goal attainment. HOW TO PREPARE FOR BLADDER RETRAINING. There is no preparation for a bladder retraining therapy session. It is important to be motivated to stick with the program to achieve success. It is likely to take 3 or 4 months to achieve your goalbut keep in mind it is your investment in yourself and has no side effects. documented in this encounter Plan of Treatment Upcoming Encounters Date Type Department Care Team (Late st Contact Info) Description 05/30/2025 3:00 PM EST Treatment Pelvic Floor [address] [phone] Tisha Galo, PT [address] [address] 05/31/2025 2:30 PM EST Procedure visit Urogynecology - [address] [phone] Leslie Templeton MD [address] [address] 08/24/2025 3:15 PM EST Office Visit Uronegalogy - [address] [phone] Leslie Templeton MD [address] [address] 10/20/2025 2:30 PM EDT Office Visit [facility] [address] [place] [address] Tip De Los Santos PA [address] [place] [address] Pending Results Name Type Priority Associated Diagnoses Date /Time Urinalysis microscopic only Lab Routine Recurrent UTI Nocturia 05/18/2025 10:08 AM EDT Culture urine Microbiology Routine Recurrent UTI 05/18/2025 10:08 AM EDT Urinalysis microscopic only Lab Routine Recurrent UTI Nocturia 05/18/2025 10:08 AM EDT Scheduled Orders Name Type Priority Associated Diagnoses Orde r Schedule US Retroperitoneal Complete Imaging Routine Recurrent UTI Expected: 05/18/2025, Expires: 05/18/2026 documented as of this encounter Procedures Procedure Name Priority Date/Time Associated Diagnosis Comments POC URINE AUTO W/O MICRO Routine 05/18/2025 10:07 AM EDT Recurrent UTI Nocturia documented in this encounter Results * (ABNORMAL) POC Urine Auto W/O Micro (05/18/2025 10:07 AM EDT) Glucose UA POC Negative Negative, Trace mg/dL Bilirubin UA POC Negative Negative Ketones UA POC Negative Negative Specific [place] UA POC 1.025 Blood UA POC Small(A) Negative PH UA POC 7.0 Protein UA POC Negative Negative mg/dL Urobilinogen UA POC 0.2 E.U./dL 0.2 E.U./dL, 1.0 E.U./dL, 8 , Unable to interpret due to interfering substances mg/dL Nitrite UA POC Negative Negative Leukocytes UA POC Negative Negative Urine Urine specimen obtained by clean catch procedure / Unknown 05/18/2025 10:07 AM EDT Lesile Templeton MD POINT OF CARE TEST ENTER/EDIT OR DERABLES Final Result documented in this encounter Visit Diagnoses Diagnosis Urge incontinence- Primary Recurrent UTI Urinary tract infection, site not specified TATYANA (stress urinary incontinence, female) Nocturia Urinary urgency Urgency of urination Urinary frequency Genitourinary syndrome of menopause Microscopic hematuria documented in this encounter Orders Outpatient Referral Count Last Ordered Date Fir st Ordered Date AMB REFERRAL TO UROGYNECOLOGY 1 05/18/2025 documented in this encounter Care Teams Character Impersonator Relationship Specialty Start Date End Date Liberty Arriaga MD [address] [place] [id number] PCP - General Internal Medicine 01/09/21 documented as of this encounter
--- OUTSIDE RECORDS SUMMARY | 2025-05-18 12:22 | XMS_ITS | Clinical Summary ---
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 PAP SMEAR [...] 52, 56, 58, 59, 66, 68) by [employer] HR-HPV analysis. Clinical correlation is advised. This HPV test was performed at [facility], [address] [place] [address]. This test has been FDA approved for SurePath cervical cytology specimens. The accuracy and precision of this test for all other specimen sources has been verified in the Cytopathology Laboratory of the [facility] and has not been cleared or approved by the U.S. Food and Drug Administration. Clinical correlation is advised. CLINICAL HISTORY Date of Last Menstrual Period: Not Provided Menstrual History: Post Menopausal Bleeding, PM Other Clinical Conditions: Screening Pap SPECIMEN SOURCE A: PAP SMEAR (SUREPATH) CE Patient Name: EDWARD DELEON : 1960 (Age: 61) Sex: F Institution: [facility] Location: [facility] Date of Collection: 05/08/2022 Date of Reported: 05/17/2022 11:35 Results to: Vijay Shaw MD, BS us Vijay Shaw MD CYTOLOGY ORDERABLES Final Res ult SEE NARRATIVE * HM MAMMOGRAPHY FOR RESULT ENTRY ONLY (03/28/2020) us Alejandrina Crump MD HEALTH MAINTENANCE F inal Result from Last 3 Months or Most Recently Relevant to Health Maintenance Insurance [facility] Advance Directives For more information, please contact: [phone] (9AM - 5PM [facility], Friday-Friday) Documents on File Type Date Recorded Patient Phlebotomy Technician Expl anation Healthcare Proxy 07/17/2022 1:13 PM * Full Code (Latest Code Status on File) Date Activated Date Inactivated Comments 07/12/2022 9:16 AM Question Answer Comments Code Status Confirmed With: Patient Care Teams Director Sterile Processing Relationship Specialty Start Date End Date Liberty Arriaga MD [address] [place] [address] PCP - General Internal Medicine 12/10/24 Additional Source Comments The information contained in this document represents components of the legal health record. It is not the complete legal health record.[facility]
--- OUTSIDE RECORDS SUMMARY | 2025-05-18 12:22 | XMS_ITS | Clinical Summary ---
Author Organization [facility] [address] [facility] Address [address] [place] [address] Phone Care Team Providers Care Dial Brusher Name Role Phone Liberty Arriaga MD Primary Care Prov ider Allergies Active Allergy Reactions Criticality Noted Date Comments Famotidine Other Medium 08/28/2022 Reports facial swelling Other 11/15/2015 Yeast Seasonal allergies Sulfamethoxazole-Trimethopr im 11/15/2015 Medications cholecalciferol (VITAMIN D-3) 25 mcg (1,000 unit) capsule Take by mouth. A ctive MULTIVITAMIN ORAL Take by mouth. Activ e albuterol HFA (ProAir HFA) 90 mcg/actuation inhalerIndicati ons:Acute cough Inhale 2 puffs by mouth every 4 (four) hours if needed for wheezing. 8.5 g 5 026 Active atorvastatin (LIPITOR) 10 mg tabletIndicatio ns:Dyslipidemia Take 1 tablet (10 mg total) by mouth 1 (one) time each day. 90 each 1 5 026 Active losartan (COZAAR) 50 mg tablet Take 1 tablet (50 mg total) by mouth 1 (one) time each day. 90 each 1 5 026 Active pantoprazole (PROTONIX) 20 mg EC tabletIndicatio ns:Gastroesopha geal reflux disease without esophagitis Take 1 tablet (20 mg total) by mouth 1 (one) time each day before breakfast. 90 each 1 5 026 Active sertraline (ZOLOFT) 50 mg tabletIndicatio ns:Mild episode of recurrent major depressive disorder (CMS/HCC V24) Take 1 tablet (50 mg total) by mouth 1 (one) time each day. 90 each 1 5 026 Active spironolactone (ALDACTONE) 25 mg tablet Take 1 tablet (25 mg total) by mouth 1 (one) time each day. 90 each 1 5 026 Active ketoconazole (NIZORAL) 2 % shampoo Apply topically 2 (two) times a week. Apply to damp skin, lather, leave on 5 minutes, and rinse 120 mL 1 5 Active estradioL (ESTRACE) 0.01 % (0.1 mg/gram) vaginal cream Insert 0.5 g into the vagina 1 (one) time each day. Please place 0.5g (a pea-sized amount) on your finger and place inside the vagina for 2 weeks at night, and then twice a week at night 42.5 g 3 5 Active vibegron (GEMTESA) 75 mg tablet tabletIndicatio ns:Nocturia,Urg e incontinence,Ur inary urgency,Urinary frequency Take 1 tablet (75 mg total) by mouth 1 (one) time each day. 90 tablet 1 5 Active cefpodoxime (VANTIN) 100 mg tablet Take 1 tablet (100 mg total) by mouth at bedtime. Take at the time of intercourse to help prevent infections 90 tablet 1 5 Active pantoprazole (PROTONIX) 20 mg EC tablet Take 1 Tablet by mouth daily. Take in am on empty stomach, wait 30 mins and then eat to activate the medication 4 025 Discontin ued(Reord er) albuterol HFA (ProAir HFA) 90 mcg/actuation inhalerIndicati ons:Acute cough Inhale 2 puffs by mouth every 4 (four) hours if needed for wheezing. 8.5 g 5 025 Discontin ued(Reord er) ketoconazole (NIZORAL) 2 % shampoo WASH IN SCALP TWO TO THREE TIMES PER WEEK. LET SIT FOR FIVE MINUTES, THEN WASH OUT. AVOID EYES 4 025 Discontin ued(Reord er) losartan (COZAAR) 50 mg tablet Take 1 tablet (50 mg total) by mouth 1 (one) time each day. 90 each 1 5 025 Discontin ued(Reord er) sertraline (ZOLOFT) 50 mg tablet Take 1 tablet (50 mg total) by mouth 1 (one) time each day. 90 each 1 5 025 Discontin ued(Reord er) spironolactone (ALDACTONE) 25 mg tablet Take 1 tablet (25 mg total) by mouth 1 (one) time each day. 90 each 1 5 025 Discontin ued(Reord er) atorvastatin (LIPITOR) 10 mg tablet Take 1 tablet (10 mg total) by mouth 1 (one) time each day. 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 Overview (06/30/2024): Right inferior mid eyelid follows with derm Seasonal allergies 11/21/2020 Hypokalemia 03/30/2019 Class 1 obesity 03/19/2018 Obstructive sleep apnea 02/23/2018 Overview (06/30/2024): [facility] Home Polysomnogram: Date 02/17/2018; AHI [...] Anemia 10/19/2015 Dyslipidemia 10/19/2015 HTN (hypertension) 10/19/2015 Resolved Problems Problem Noted Date Diagnosed Date Resolved Date Bilateral thumb pain 09/24/2018 025 Encounters Date Type Department Care Team Description 05/18/2025 9:00 AM EDT Office Visit Urogynecology [address] [phone] Leslie Templeton MD Urge incontinence (Primary Dx); Recurrent UTI; TATYANA (stress urinary incontinence, female); Nocturia; Urinary urgency; Urinary frequency; Genitourinary syndrome of menopause; Microscopic hematuria 04/28/2025 Results Follow-Up Adult [address] [phone] Tip De Los Santos PA 04/26/2025 Telephone Adult [address] [phone] Liberty Grady MD 04/21/2025 4:00 PM EDT Office Visit [address] [phone] Tip De Los Santos PA Dyslipidemia (Primary Dx); Acute cough; Gastroesophageal reflux disease without esophagitis; Mild episode of recurrent major depressive disorder (CMS/[facility] V24); Vitamin D deficiency; Prediabetes; Primary hypertension; Seasonal allergies; Obstructive sleep apnea 04/08/2025 Telephone Adult [address] [phone] Liberty Grady MD from Last 3 Months Immunizations Immunization Administration Dates Next Due Influenza trivalent, 0.5mL, [...] apnea 02/23/2018 DX:Obstr uctive sleep apnea; COMMENT: [facility] Home Polysomnogram: Date 02/17/2018; AHI [...] Pulse 66 05/18/2025 8:35 AM EDT Temperature 36.6 C (97.9 F) 04/21/2025 4:18 PM EDT Respiratory Rate - - Oxygen Saturation 99% 11/19/2024 11:30 AM EDT Inhaled Oxygen Concentration - - Weight 78.5 kg (173 lb) 05/18/2025 8:35 AM EDT Height 157.5 cm (5' 2 ) 05/18/2025 8:35 AM EDT Body Mass Index 31.64 05/18/2025 8:35 AM EDT Plan of Treatment Upcoming Encounters Date Type Department Care Team (Late st Contact Info) Description 05/30/2025 3:00 PM EST Treatment Pelvic Floor Rehabilitation - [address] [phone] Tisha Galo, PT [address] [address] 05/31/2025 2:30 PM EST Procedure visit Urogynecology - [place] [address] [place], [place] [phone] Leslie Templeton MD 580 [facility] [address] [place] [address] 08/24/2025 3:15 PM EST Office Visit Urogynecology - [place] [address] [place], [place] [phone] Leslie Templeton MD 580 [facility] [address] [place] [address] 10/20/2025 2:30 PM EDT Office Visit Adult Medicine - [place] [address] [place] [address] Tip De Los Santos PA [address] [place] [address] Health Maintenance Due Date Last Done Comments Pneumococcal Vaccine: 50+ Years (1 of 1 - PCV) 2012 HIV Screening 06/29/2022 Social Influencers of Health Screening 06/29/2022 Depression Screening 07/21/2024 COVID-19 Vaccine ( season) 2025 05/09/2023, 05/17/2022, 06/30/2021, Additional history exists Cervical Cancer Screening: Pap Smear 05/08/2025 05/08/2022, 04/05/2020 Colorectal Cancer Screening: Colonoscopy 12/26/2025 12/26/2020, 12/26/2020 Breast Cancer Screening 04/06/2026 04/06/2024 Hypertension/CHF/CAD Annual BMP Blood Test 04/28/2026 04/28/2025, 11/18/2024, 04/29/2024, Additional history exists DTaP,Tdap,and Td Vaccines (2 - Td or Tdap) 09/04/2026 09/04/2016 Cholesterol Screening (Lipid Panel) 04/28/2030 04/28/2025, 04/22/2024, 04/22/2024 RSV Immunization Adult Patients (1 - 1-dose 75+ series) 2037 Hepatitis C Screening Completed 01/27/2017 Zoster Vaccines Completed 06/12/2019, 04/12/2019 Influenza Vaccine Completed 05/13/2025, , 05/09/2023, Additional history exists HIB Vaccines Aged Out No longer eligi [...] 05/18/2025 10:07 AM EDT Recurrent UTI Nocturia HEMOGLOBIN A1C Routine 04/28/2025 8:33 AM EDT Prediabetes COMPREHENSIVE METABOLIC PANEL Routine 04/28/2025 8:33 AM EDT Primary hypertension LIPID PANEL WITH REFLEX TO DIRECT LDL Routine 04/28/2025 8:33 AM EDT Dyslipidemia MATUTE URINE CULTURE TUBE Routine 04/08/2025 4:45 PM EDT Urinary tract infection without hematuria, site unspecified URINALYSIS WITH REFLEX MICROSCOPIC AND CULTURE Routine 04/08/2025 4:45 PM EDT Urinary tract infection without hematuria, site unspecified URINALYSIS WITH REFLEX MICROSCOPIC AND CULTURE Routine 04/08/2025 4:45 PM EDT Urinary tract infection without hematuria, site unspecified EXTERNAL MAMMOGRAM REPORT Routine 04/06/2024 9:17 AM EDT PAP SMEAR Routine 05/08/2022 COLONOSCOPY Routine 12/26/2020 HEPATITIS C SCREENING Routine 01/27/2017 from Last 3 Months or Most Recently Relevant to Health Maintenance Results * (ABNORMAL) POC Urine Auto W/O Micro (05/18/2025 10:07 AM EDT) Glucose UA POC Negative Negative, Trace mg/dL Bilirubin UA POC Negative Negative Ketones UA POC Negative Negative Specific [place] UA POC 1.025 Blood UA POC Small(A) Negative PH UA POC 7.0 Protein UA POC Negative Negative mg/dL Urobilinogen UA POC 0.2 E.U./dL 0.2 E.U./dL, 1.0 E.U./dL, 8 , Unable to interpret due to interfering substances mg/dL Nitrite UA POC Negative Negative Leukocytes UA POC Negative Negative Urine Urine specimen obtained by clean catch procedure / Unknown 05/18/2025 10:07 AM EDT Leslie Templeton MD POINT OF CARE TEST ENTER/EDIT OR DERABLES Final Result * (ABNORMAL) Lipid panel with reflex to direct LDL (04/28/2025 8:33 AM EDT) Cholesterol 179 0 - 200 mg/dL LAB CHEMISTRY METHOD 04/28/2025 12:36 PM EDT [facility] Triglycerides 121 0 - 150 mg/dL LAB CHEMISTRY METHOD 04/28/2025 12:36 PM EDT [facility] HDL 54 >=40 mg/dL LAB CHEMISTRY METHOD 04/28/2025 12:36 PM EDT [facility] LDL Calculated 101(H) 0 - 100 mg/dL LAB CHEMISTRY METHOD 04/28/2025 12:36 PM EDT [facility] Comment:Estimated LDL Calcul ated using equation: Total cholesterol - HDL cholesterol - (Triglycerides/5) VLDL Cholesterol Kael 24.2 mg/dL LAB CHEMISTRY METHOD 04/28/2025 12:36 PM EDT [facility] Non HDL Chol. (LDL+VLDL) 125 <145 mg/dL LAB CHEMISTRY METHOD 04/28/2025 12:36 PM EDT [facility] Chol/HDL Ratio 3.3 0.0 - 4.4 LAB CHEMISTRY METHOD 04/28/2025 12:36 PM EDT [facility] Blood Venous blood specimen / Unknown Venipuncture / Unknown 04/28/2025 8:33 AM EDT 04/28/2025 8:33 AM EDT us Tip [facility] BLOOD ORDERABLES Final Res ult Performing Organization Address [facility]/ZIP Co de Phone Number [facility] [address] [place] [address], [place] [phone] * Hemoglobin A1c (04/28/2025 8:33 AM EDT) Hemoglobin A1C 6.2 <6.5 % LAB CHEMISTRY METHOD 04/28/2025 2:09 PM EDT [facility] Mean Bld Glu Estim. 131 mg/dL LAB CHEMISTRY METHOD 04/28/2025 2:09 PM EDT [facility] Blood Venous blood specimen / Unknown Venipuncture / Unknown 04/28/2025 8:33 AM EDT 04/28/2025 8:33 AM EDT us [facility] BLOOD ORDERABLES Final Res ult [facility] [address] [place] [address], [place] [phone] * (ABNORMAL) Comprehensive metabolic panel (04/28/2025 8:33 AM EDT) Sodium 139 133 - 145 mmol/L LAB CHEMISTRY METHOD 04/28/2025 12:[address] [facility] Potassium 4.5 3.5 - 5.5 mmol/L LAB CHEMISTRY METHOD 04/28/2025 12:[address] [facility] Chloride 106 96 - 110 mmol/L LAB CHEMISTRY METHOD 04/28/2025 12:[address] [facility] CO2 27 21 - 32 mmol/L LAB CHEMISTRY METHOD 04/28/2025 12:[address] [facility] Anion Gap 6 3 - 11 LAB CHEMISTRY METHOD 04/28/2025 12:[address] [facility] Glucose 109(H) 70 - 100 mg/dL LAB CHEMISTRY METHOD 04/28/2025 12:[address] [facility] BUN 16 5 - 25 mg/dL LAB CHEMISTRY METHOD 04/28/2025 12:[address] [facility] Creatinine 0.83 0.50 - 1.10 mg/dL LAB CHEMISTRY METHOD 04/28/2025 12:[address] [facility] eGFR 80 >=60 mL/min/1. 73m2 LAB CHEMISTRY METHOD 04/28/2025 12:[address] [facility] Comment:Calculation based on the Chronic Kidney Disease Epidemiology Collaboration (CKD-EPI) equation refit without adjustment for race. BUN/Creatinine Ratio 19.3 LAB CHEMISTRY METHOD 04/28/2025 12:[address] [facility] Calcium 9.3 8.5 - 10.5 mg/dL LAB CHEMISTRY METHOD 04/28/2025 12:[address] [facility] AST (SGOT) 29 10 - 42 unit/L LAB CHEMISTRY METHOD 04/28/2025 12:[address] [facility] ALT (SGPT) 59 10 - 60 unit/L LAB CHEMISTRY METHOD 04/28/2025 12:[address] [facility] Alkaline Phosphatase 102 42 - 121 unit/L LAB CHEMISTRY METHOD 04/28/2025 12:36 PM EDT [facility] Total Protein 7.2 6.0 - 8.0 g/dL LAB CHEMISTRY METHOD 04/28/2025 12:36 PM T [facility] Albumin 4.0 3.2 - 5.0 g/dL LAB CHEMISTRY METHOD 04/28/2025 12:36 PM EDT [facility] Total Bilirubin 0.4 0.0 - 1.4 mg/dL LAB CHEMISTRY METHOD 04/28/2025 12:36 PM EDT [facility] Blood Venous blood specimen / Unknown Venipuncture / Unknown 04/28/2025 8:33 AM EDT 04/28/2025 8:33 AM EDT [facility] BLOOD ORDERABLES Final Res ult [facility] [address] [place] [address], [place] [phone] * (ABNORMAL) Urinalysis with reflex microscopic and culture (04/08/2025 4:45 PM EDT) Specific [place] Urine 1.025 1.003 - 1.030 LAB URINALYSIS - AUTOMATED METHOD 04/08/2025 9:[address] [facility] pH, Urine 6.0 5.0 - 8.0 pH LAB URINALYSIS - AUTOMATED METHOD 04/08/2025 9:[address] [facility] Leukocytes, Urine Negative Negative LAB URINALYSIS - AUTOMATED METHOD 04/08/2025 9:[address] [facility] Nitrite, Urine Negative Negative LAB URINALYSIS - AUTOMATED METHOD 04/08/2025 9:[address] [facility] Protein, Urine Negative <=Trace mg/dL LAB URINALYSIS - AUTOMATED METHOD 04/08/2025 9:[address] [facility] Glucose, Urine Negative Negative mg/dL LAB URINALYSIS - AUTOMATED METHOD 04/08/2025 9:44 PM EDT [facility] Ketones, Urine Negative Negative mg/dL LAB URINALYSIS - AUTOMATED METHOD 04/08/2025 9:44 PM EDT [facility] Urobilinogen , Urine 0.2 0.2 - 1.0 mg/dL LAB URINALYSIS - AUTOMATED METHOD 04/08/2025 9:44 PM EDT [facility] Bilirubin, Urine Negative Negative LAB URINALYSIS - AUTOMATED METHOD 04/08/2025 9:44 PM EDT [facility] Blood, Urine Trace(A) Negative LAB URINALYSIS - AUTOMATED METHOD 04/08/2025 9:44 PM EDT [facility] RBC, Urine 10(H) 0 - 4 /HPF 04/08/2025 9:44 PM EDT [facility] WBC, Urine 1 0 - 4 /HPF 04/08/2025 9:44 PM EDT [facility] Squamous Epithelial, Urine 1 0 - 60 /LPF 04/08/2025 9:44 PM EDT [facility] Non-Squamous Epithelial, Urine Rare Transitional epithelial cells. /LPF 04/08/2025 9:44 PM EDT [facility] Bacteria, Urine Negative Negative /HPF 04/08/2025 9:44 PM EDT [facility] Hyaline Casts, Urine 1 0 - 3 /LPF 04/08/2025 9:44 PM EDT [facility] Urine Urine specimen obtained by clean catch procedure / Unknown Non-blood Collection / Unknown 04/08/2025 4:45 PM EDT 04/08/2025 4:45 PM EDT us [facility] URINE ORDERABLES Final Result [facility] [address] [place] [address], [place] [phone] * [place] urine culture tube (04/08/2025 4:45 PM EDT) [facility] Extra Tube Hold for add-ons. 04/08/2025 6:01 PM EDT [facility] Comment:Auto resulted. Urine Urine specimen obtained by clean catch procedure / Unknown Non-blood Collection / Unknown 04/08/2025 4:45 PM EDT 04/08/2025 4:45 PM EDT [facility] URINE ORDERABLES Final Result [facility] [address] [place] [address], [place] [phone] * External Mammogram Report (04/06/2024 9:17 AM EDT) Anatomical Region Laterality Modality Mammography Historical Provider IMG BI PROCEDURES Final R esult * Pap Smear (05/08/2022) [facility] Pap smear PAP Negative; HPV Negative [facility] Provider HEALTH MAINTENANCE Final Result * Colonoscopy (12/26/2020) [facility] Colonoscopy no interpretation , abstracted Anatomical Region Laterality Modality Other Historical Provider HEALTH MAINTENANCE Final Result * Hepatitis C Screening (01/27/2017) [facility] Hepatitis C Screening Abstracted Historical Provider HEALTH MAINTENANCE Final Result from Last 3 Months or Most Recently Relevant to Health Maintenance Insurance [facility] Care Teams Dial Brusher Relationship Specialty Start Date End Date Liberty Arriaga MD [address] [place] [phone] PCP - General Internal Medicine 01/09/21
--- OUTSIDE RECORDS SUMMARY | 2025-05-18 12:23 | XMS_ITS | Encounter Summary ---
Author Organization [facility] Address [address] [place] [address] Care Team Providers Care Fixed Capital Clerk Name Role Phone Liberty Arriaga MD Primary Care Prov ider Reason for Referral * Consultation (Routine) - Closed Specialty Diagnoses / Procedures Referred By Alton t Referred To Contact Allergy Diagnoses Encounter for desensitization to allergens Liberty Arriaga MD [address] [place] [address] Phone: tel: fax: Antoinette Raygoza, [address] [address] Phone: tel: Referral ID Status Reason Start Date Expiration Date V isits Requested Visits Authorized [id number] Closed Consult and Treat 04/26/2025 03/07/2026 99 99 Reason for Visit * Reason Onset Date Comments Referral 04/26/2025 Allergy Encounter Details Date Type Department Care Team ([facility] Contact Info) Description 04/26/2025 Telephone Adult Medicine - [place] [address] [place] [phone] Liberty Arriaga MD [address] [place] [address] Social History Tobacco Use Types Packs/Day Years [...] AM EST documented as of this encounter Progress Notes * Kia Amanda - 04/26/2025 11:52 AM EDT Please review and sign pended referral if appropriate documented in this encounter Plan of Treatment Upcoming Encounters Date Type Department Care Team (Late st Contact Info) Description 05/30/2025 3:00 PM EST Treatment Pelvic Floor Rehabilitation - [address] [phone] Tisha Galo, PT [address] [address] 05/31/2025 2:30 PM EST Procedure visit Urogynecology - [address] [phone] Leslie Templeton MD [address] [address] 08/24/2025 3:15 PM EST Office Visit Urogynecology - [address] [phone] Leslie Templeton MD [address] [address] 10/20/2025 2:30 PM EDT Office Visit Adult Medicine - [place] [address] [place] [address] Tip De Los Santos PA [address] [place] [address] Scheduled Referrals Name Type Priority Associated Diagnoses Orde r Schedule Ambulatory referral to Allergy Outpatient Referral Routine Encounter for desensitization to allergens Ordered: 04/26/2025 documented as of this encounter Visit Diagnoses Diagnosis Encounter for desensitization to allergens- Primary documented in this encounter Care Teams Fixed Capital Clerk Relationship Specialty Start Date End Date Liberty Arriaga MD [address] [place] [phone] PCP - General Internal Medicine 01/09/21 documented as of this encounter
--- OUTSIDE RECORDS SUMMARY | 2025-05-18 12:23 | XMS_ITS | Encounter Summary ---
Author Organization [facility] Address [address] [place] [address] Care Team Providers Care Campus Interviews Intern Name Role Phone Liberty Arriaga MD Primary Care Prov ider Encounter Details Date Type Department Care Team (Late Contact Info) Description 04/28/2025 Results Follow-Up Adult Medicine - [place] [address] [place] [address] Tip De Los Santos PA [address] [place] [address] Social History Tobacco Use Types Packs/Day Years [...] AM EST documented as of this encounter Plan of Treatment Upcoming Encounters Date Type Department Care Team (Late Contact Info) Description 05/30/2025 3:00 PM EST Treatment Pelvic Floor Rehabilitation - [address] [phone] Tisha Galo, PT [address] [place] [phone] (Work) 05/31/2025 2:30 PM EST Procedure visit Urogynecology - [place] [address] [place], [place] [phone] Leslie Templeton MD [address] [address] 08/24/2025 3:15 PM EST Office Visit Urogynecology - [address] [phone] Leslie Templeton MD [address] [address] 10/20/2025 2:30 PM EDT Office Visit Adult Medicine [facility] [address] [place] [address] Tip De Los Santos PA [address] [place], [place] documented as of this encounter Procedures Procedure Name Priority Date/Time Associated Diagnosis Comments PAP SMEAR Routine 05/08/2022 documented in this encounter Results * Pap Smear (05/08/2022) Pap smear PAP Negative; HPV Negative Historical Provider HEALTH MAINTENANCE Final Result documented in this encounter Visit Diagnoses Not on filedocumented in this encounter Care Teams Campus Interviews Intern Relationship Specialty Start Date End Date Liberty Arriaga MD [address] [place] [address] PCP - General Internal Medicine 01/09/21 documented as of this encounter
--- OUTSIDE RECORDS SUMMARY | 2025-05-18 12:23 | XMS_ITS | Encounter Summary ---
Author Organization [facility] Address [address] [place] [address] Phone Care Team Providers Care Digester Operator Helper Name Role Phone [place] Kristen Dasilva MD Primary Care Provider Liberty Arriaga MD Primary Care Pr ovider Encounter Details Date Type Department Care Team (Late st Contact Info) Description 07/12/2022 Procedure Pass OR Admitting Dept - Virtual Department [address] [place] [address] Social History Tobacco Use Types Packs/Day Years Used Date Smoking Tobacco: Never Smokeless Tobacco: Never Alcohol Use Standard Drinks/Week Comments Never 0 (1 standard drink = 0.6 oz pur e alcohol) Intimate Partner Violence Answer Date R ecorded Are you denied basic needs [facility] as food, clothing, or medical care? 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 Not on file Not on file documented as of this encounter Plan of Treatment Not on file documented as of this encounter Visit Diagnoses Not on filedocumented in this encounter Care Teams Digester Operator Helper Relationship Specialty Start Date End Date Kristen Dow MD [address] [place] [address] PCP - General Internal Medicine 02/26/18 12/09/24 Liberty Arriaga MD [address] [place] [address] PCP - General Internal Medicine 12/10/24 documented as of this encounter Additional Source Comments The information contained in this document represents components of the legal health record. It is not the complete legal health record.[facility]
== END 2025-05-18 10:11 | disposition home or self-care (01) ==
LOC: HO.HMGAL 10:10
PROVIDERS: PCP Internal Medicine; Visit Provider Registered Nurse Emergency
DX: J30.89 Other allergic rhinitis (principal)
CPT/HCPCS: 95117; 95165

== ENCOUNTER 2025-05-30 10:41 | Outpatient (AMB) | payer BC, SELFPAY ==
--- OUTSIDE RECORDS SUMMARY | 2025-05-30 12:45 | XMS_ITS | Encounter Summary ---
Author Organization [facility] Address [address] [place] [address] Care Team Providers Care Complaint Coordinator Name Role Phone Liberty Arriaga MD Primary Care Prov ider Encounter Details Date Type Department Care Team (Late Contact Info) Description 05/19/2025 Results Follow-Up Urogynecology - [address] [place] [phone] Leslie Templeton MD [address] [place] [address] [place] [address] Social History Tobacco Use Types Packs/Day Years [...] 3:00 PM EST Treatment Pelvic Floor Rehabilitation [address] [phone] Tisha Galo, PT [address] [address] 05/31/2025 2:30 PM EST Procedure visit Urogynecology - [address] [phone] Leslie Templeton MD [address] [place] [address] 06/02/2025 5:00 PM EST Appointment Radiology Department - [address] [phone] 08/24/2025 3:15 PM EST Office Visit Urogynecology - [address] [phone] Leslie Templeton MD [address] [place] [address] 10/20/2025 2:30 PM EDT Office Visit Adult Medicine - [place] [address] [place] [address] Tip De Los Santos PA [address] [place] [address] documented as of this encounter Visit Diagnoses Not on filedocumented in this encounter Care Teams Complaint Coordinator Relationship Specialty Start Date End Date Liberty Arriaga MD [address] [place] [address] PCP - General Internal Medicine 01/09/21 documented as of this encounter
--- OUTSIDE RECORDS SUMMARY | 2025-05-30 12:45 | XMS_ITS | Clinical Summary ---
Author Organization [facility] [address] [facility] lding Address [address] [place] [address] Phone Care Team Providers Care Revenue Stamper Name Role Phone Liberty Arriaga MD Primary Care Prov ider Allergies Active Allergy Reactions Criticality Noted Date Comments Famotidine Other Medium 08/28/2022 Reports facial swelling Other 11/15/2015 Yeast Seasonal allergies Sulfamethoxazole-Trimethopr im 11/15/2015 Medications cholecalciferol (VITAMIN D-3) 25 mcg (1,000 unit) capsule Take by mouth. Activ e MULTIVITAMIN ORAL Take by mouth. Activ e albuterol HFA (ProAir HFA) 90 mcg/actuation inhalerIndicatio ns:Acute cough Inhale 2 puffs by mouth every 4 (four) hours if needed for wheezing. 8.5 g 5 04/21/20 26 Active atorvastatin (LIPITOR) 10 mg tabletIndication s:Dyslipidemia Take 1 tablet (10 mg total) by mouth 1 (one) time each day. 90 each 1 5 10/19/19 26 Active losartan (COZAAR) 50 mg tablet Take 1 tablet (50 mg total) by mouth 1 (one) time each day. 90 each 1 5 10/19/19 26 Active pantoprazole (PROTONIX) 20 mg EC tabletIndication s:Gastroesophage al reflux disease without esophagitis Take 1 tablet (20 mg total) by mouth 1 (one) time each day before breakfast. 90 each 1 5 10/19/19 26 Active sertraline (ZOLOFT) 50 mg tabletIndication s:Mild episode of recurrent major depressive disorder ([facility] V24) Take 1 tablet (50 mg total) by mouth 1 (one) time each day. 90 each 1 5 10/19/19 26 Active spironolactone (ALDACTONE) 25 mg tablet Take 1 tablet (25 mg total) by mouth 1 (one) time each day. 90 each 1 5 10/19/19 26 Active ketoconazole (NIZORAL) 2 % shampoo Apply [...] 5 Active vibegron (GEMTESA) 75 mg tablet tabletIndication s:Nocturia,Urge incontinence,Uri nary urgency,Urinary frequency Take 1 tablet (75 mg total) by mouth 1 (one) time each day. 90 tablet 1 5 Active cefpodoxime (VANTIN) 100 mg tablet Take 1 tablet (100 mg total) by mouth at bedtime. 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 Overview (06/30/2024): Right inferior mid eyelid follows with derm Seasonal allergies 11/21/2020 Hypokalemia 03/30/2019 Class 1 obesity 03/19/2018 Obstructive sleep apnea 02/23/2018 Overview (06/30/2024): [facility] Home Polysomnogram: Date 02/17/2018; AHI [...] Encounters Date Type Department Care Team Description 05/20/2025 Telephone Urogynecology - [address] [place] [address] Leslie Templeton MD 05/19/2025 Results Follow-Up Urogynecology - [address] [place] [address] Leslie Templeton MD 05/18/2025 9:00 AM EDT Office Visit Urogynecology [address] [phone] Leslie Templeton MD Urge incontinence (Primary Dx); Recurrent UTI; TATYANA (stress urinary incontinence, female); Nocturia; Urinary urgency; Urinary frequency; Genitourinary syndrome of menopause; Microscopic hematuria 04/28/2025 Results Follow-Up Adult Medicine - [place] [address] [place] [address] Tip De Los Santos PA 04/26/2025 Telephone Adult Medicine - [place] [address] [place] [phone] Liberty [place] MD 04/21/2025 4:00 PM EDT Office Visit Adult [facility] [address] [place] [phone] Tip De Los Santos PA Dyslipidemia (Primary Dx); Acute cough; Gastroesophageal reflux disease without esophagitis; Mild episode of recurrent major depressive disorder ([facility] V24); Vitamin D deficiency; Prediabetes; Primary hypertension; Seasonal allergies; Obstructive sleep apnea 04/08/2025 Telephone Adult [facility] [address] [place] [phone] Liberty [place] MD from Last 3 Months [...] apnea 02/23/2018 DX:Obstr uctive sleep apnea; COMMENT: [facility] Home Polysomnogram: Date 02/17/2018; AHI [...] PM EST Treatment Pelvic Floor Rehabilitation - [address] [phone] Tisha Galo, PT [address] [address] 05/31/2025 2:30 PM EST Procedure visit Urogynecology - [address] [phone] Leslie Templeton MD [address] [place] [address] 06/02/2025 5:00 PM EST Appointment Radiology Department - [address] [phone] 08/24/2025 3:15 PM EST Office Visit Urogynecology - [address] [phone] Leslie Templeton MD [address] [place] [address] 10/20/2025 2:30 PM EDT Office Visit Adult Medicine - [place] [address] [place] [address] Tip De Los Santos PA [address] [place] [address] Health Maintenance Due Date Last Done Comments [...] Procedure Name Priority Date/Time Associated Diagnosis Comments URINALYSIS MICROSCOPIC ONLY Routine 05/18/2025 10:08 AM EDT Recurrent UTI Nocturia URINALYSIS MICROSCOPIC ONLY Routine 05/18/2025 10:08 AM EDT Recurrent UTI Nocturia CULTURE URINE Routine 05/18/2025 10:08 AM EDT Recurrent UTI POC URINE AUTO W/O MICRO Routine 05/18/2025 [...] MAMMOGRAM REPORT Routine 04/06/2024 9:17 AM EDT HM PAP SMEAR Routine 05/08/2022 HM COLONOSCOPY Routine 12/26/2020 HM HEPATITIS C SCREENING Routine 01/27/2017 from Last 3 Months or Most Recently Relevant to Health Maintenance Results * Urinalysis microscopic only (05/18/2025 10:08 AM EDT) RBC, Urine 1.2 0 - 4 /HPF LAB URINALYSIS - AUTOMATED METHOD 05/18/2025 6:40 PM EDT [facility] WBC, Urine 0.3 0 - 4 /HPF LAB URINALYSIS - AUTOMATED METHOD 05/18/2025 6:40 PM EDT [facility] Squamous Epithelial, Urine 3 0 - 60 /LPF LAB URINALYSIS - AUTOMATED METHOD 05/18/2025 6:40 PM EDT [facility] Bacteria, Urine Negative Negative /HPF LAB URINALYSIS - AUTOMATED METHOD 05/18/2025 6:40 PM EDT [facility] Hyaline Casts, Urine 0.0 0 - 3 /LPF LAB URINALYSIS - AUTOMATED METHOD 05/18/2025 6:40 PM EDT [facility] Urine Urinary bladder structure / Unknown Non-blood Collection / Unknown 05/18/2025 10:08 AM EDT 05/18/2025 10:08 AM EDT us Leslie Templeton MD LAB URINE ORDERABLES Final Resul t [facility] [address] [place] [address], [place] [phone] * Culture urine (05/18/2025 10:08 AM EDT) Culture, Urine No growth 05/20/2025 8:51 AM EDT [facility] Urine Urinary bladder structure / Unknown Non-blood Collection / Unknown 05/18/2025 10:08 AM EDT 05/18/2025 10:08 AM EDT us Leslie Templeton MD LAB MICROBIOLOGY - GENERAL ORDER MICHAEL Final Result Performing Organization Address City/[facility]/ZIP Co de Phone Number [facility] [address] [place] [address], [place] [phone] * (ABNORMAL) POC Urine Auto W/O Micro (05/18/2025 10:07 AM EDT) Glucose UA POC Negative Negative, Trace mg/dL Bilirubin UA POC Negative Negative Ketones UA POC Negative Negative Specific [place] UA POC 1.025 Blood UA POC Small(A) [...] to direct LDL (04/28/2025 8:33 AM EDT) [facility] Cholesterol 179 0 - 200 mg/dL LAB CHEMISTRY METHOD 04/28/2025 12:36 PM [facility] Triglycerides 121 0 - 150 mg/dL LAB CHEMISTRY METHOD 04/28/2025 12:36 PM [facility] HDL 54 >=40 mg/dL LAB CHEMISTRY METHOD 04/28/2025 12:36 PM [facility] LDL Calculated 101(H) 0 - 100 mg/dL LAB CHEMISTRY METHOD 04/28/2025 12:36 PM [facility] Comment:Estimated LDL Calcul ated using equation: Total cholesterol - HDL cholesterol - (Triglycerides/5) VLDL Cholesterol Kael 24.2 mg/dL LAB CHEMISTRY METHOD 04/28/2025 12:36 PM [facility] Non HDL Chol. (LDL+VLDL) 125 <145 mg/dL LAB CHEMISTRY METHOD 04/28/2025 12:36 PM [facility] Chol/HDL Ratio 3.3 0.0 - 4.4 LAB CHEMISTRY METHOD 04/28/2025 12:36 PM EDT [facility] Blood Venous blood specimen / Unknown Venipuncture / Unknown 04/28/2025 8:33 AM EDT 04/28/2025 8:33 AM EDT [facility] BLOOD ORDERABLES Final Res ult Performing Organization Address City/[facility]/ZIP Co de Phone Number [facility] [address] [place] [address], [place] [phone] * Hemoglobin A1c (04/28/2025 8:33 AM EDT) Hemoglobin A1C 6.2 <6.5 % LAB CHEMISTRY METHOD 04/28/2025 2:09 PM EDT [facility] Mean Bld Glu Estim. 131 mg/dL LAB CHEMISTRY METHOD 04/28/2025 2:09 PM EDT [facility] Blood Venous blood specimen / Unknown Venipuncture / Unknown 04/28/2025 8:33 AM EDT 04/28/2025 8:33 AM EDT us [facility] BLOOD ORDERABLES Final Res ult Performing Organization Address City/[facility]/ZIP Co de Phone Number [facility] [address] [place] [address], [place] [phone] * (ABNORMAL) Comprehensive metabolic panel (04/28/2025 8:33 AM EDT) Sodium 139 133 - 145 mmol/L LAB CHEMISTRY METHOD 04/28/2025 12:36 PM EDT [facility] Potassium 4.5 3.5 - 5.5 mmol/L LAB CHEMISTRY METHOD 04/28/2025 12:36 PM EDT [facility] Chloride 106 96 - 110 mmol/L LAB CHEMISTRY METHOD 04/28/2025 12:36 PM EDT [facility] CO2 27 21 - 32 mmol/L LAB CHEMISTRY METHOD 04/28/2025 12:36 PM [facility] Anion Gap 6 3 - 11 LAB CHEMISTRY METHOD 04/28/2025 12:36 PM [facility] Glucose 109(H) 70 - 100 mg/dL LAB CHEMISTRY METHOD 04/28/2025 12:36 PM [facility] BUN 16 5 - 25 mg/dL LAB CHEMISTRY METHOD 04/28/2025 12:36 PM [facility] Creatinine 0.83 0.50 - 1.10 mg/dL LAB CHEMISTRY METHOD 04/28/2025 12:36 PM [facility] eGFR 80 >=60 mL/min/1. 73m2 LAB CHEMISTRY METHOD 04/28/2025 12:36 PM [facility] Comment:Calculation based on the Chronic Kidney Disease Epidemiology Collaboration (CKD-EPI) equation refit without adjustment for race. BUN/Creatinine Ratio 19.3 LAB CHEMISTRY METHOD 04/28/2025 12:36 PM [facility] Calcium 9.3 8.5 - 10.5 mg/dL LAB CHEMISTRY METHOD 04/28/2025 12:36 PM [facility] AST (SGOT) 29 10 - 42 unit/L LAB CHEMISTRY METHOD 04/28/2025 12:36 PM [facility] ALT (SGPT) 59 10 - 60 unit/L LAB CHEMISTRY METHOD 04/28/2025 12:36 PM [facility] Alkaline Phosphatase 102 42 - 121 unit/L LAB CHEMISTRY METHOD 04/28/2025 12:36 PM [facility] Total Protein 7.2 6.0 - 8.0 g/dL LAB CHEMISTRY METHOD 04/28/2025 12:36 PM [facility] Albumin 4.0 3.2 - 5.0 g/dL LAB CHEMISTRY METHOD 04/28/2025 12:36 PM [facility] Total Bilirubin 0.4 0.0 - 1.4 mg/dL LAB CHEMISTRY METHOD 04/28/2025 12:36 PM EDT [facility] Blood Venous blood specimen / Unknown Venipuncture / Unknown 04/28/2025 8:33 AM EDT 04/28/2025 8:33 AM EDT us [facility] BLOOD ORDERABLES Final Res ult [facility] [address] [place] [address], [place] [phone] * (ABNORMAL) Urinalysis with reflex microscopic and culture (04/08/2025 4:45 PM EDT) Specific [place] Urine 1.025 1.003 - 1.030 LAB URINALYSIS - AUTOMATED METHOD 04/08/2025 9:44 PM EDT [facility] pH, Urine 6.0 5.0 - 8.0 pH LAB URINALYSIS - AUTOMATED METHOD 04/08/2025 9:44 PM [facility] Leukocytes, Urine Negative Negative LAB URINALYSIS - AUTOMATED METHOD 04/08/2025 9:44 PM [facility] Nitrite, Urine Negative Negative LAB URINALYSIS - AUTOMATED METHOD 04/08/2025 9:44 PM [facility] Protein, Urine Negative <=Trace mg/dL LAB URINALYSIS - AUTOMATED METHOD 04/08/2025 9:44 PM T [facility] Glucose, Urine Negative Negative mg/dL LAB URINALYSIS - AUTOMATED METHOD 04/08/2025 9:44 PM [facility] Ketones, Urine Negative Negative mg/dL LAB URINALYSIS - AUTOMATED METHOD 04/08/2025 9:44 PM [facility] Urobilinogen , Urine 0.2 0.2 - 1.0 mg/dL LAB URINALYSIS - AUTOMATED METHOD 04/08/2025 9:44 PM EDT [facility] Bilirubin, Urine Negative Negative LAB URINALYSIS - AUTOMATED METHOD 04/08/2025 9:44 PM EDT [facility] Blood, Urine Trace(A) Negative LAB URINALYSIS - AUTOMATED METHOD 04/08/2025 9:44 PM EDT [facility] RBC, Urine 10(H) 0 - 4 /HPF 04/08/2025 9:44 PM EDT [facility] WBC, Urine 1 0 - 4 /HPF 04/08/2025 9:44 PM EDT [facility] Squamous Epithelial, Urine 1 0 - 60 /LPF 04/08/2025 9:44 PM EDT [facility] Non-Squamous Epithelial, Urine Rare Transitional epithelial cells. /LPF 04/08/2025 9:44 PM EDT [facility] Bacteria, Urine Negative Negative /HPF 04/08/2025 9:44 PM EDT [facility] Hyaline Casts, Urine 1 0 - 3 /LPF 04/08/2025 9:44 PM EDT [facility] Urine Urine specimen obtained by clean catch procedure / Unknown Non-blood Collection / Unknown 04/08/2025 4:45 PM EDT 04/08/2025 4:45 PM EDT [facility] URINE ORDERABLES Final Result [facility] [address] [place] [address], * Matute urine culture tube (04/08/2025 4:45 PM EDT) Extra Tube Hold for add-ons. 04/08/2025 6:01 PM EDT [facility] Comment:Auto resulted. Urine Urine specimen obtained by clean catch procedure / Unknown Non-blood Collection / Unknown 04/08/2025 4:45 PM EDT 04/08/2025 4:45 PM EDT [facility] URINE ORDERABLES Final Result [facility] [address] [place] [address], [place] [phone] * External Mammogram Report (04/06/2024 9:17 AM EDT) Anatomical Region Laterality Modality Mammography Historical Provider IMG BI PROCEDURES Final R esult * Pap Smear (05/08/2022) Pap smear PAP Negative; HPV Negative Historical Provider HEALTH MAINTENANCE Final Result * Colonoscopy (12/26/2020) Colonoscopy no interpretation , abstracted Anatomical Region Laterality Modality Other Historical Provider HEALTH MAINTENANCE Final Result * Hepatitis C Screening (01/27/2017) Hepatitis C Screening Abstracted Historical Provider HEALTH MAINTENANCE Final Result from Last 3 Months or Most Recently Relevant to Health Maintenance Insurance [facility] Care Teams Revenue Stamper Relationship Specialty Start Date End Date Liberty Arriaga MD [address] [place] [id number] PCP - General Internal Medicine 01/09/21
--- OUTSIDE RECORDS SUMMARY | 2025-05-30 12:45 | XMS_ITS | Encounter Summary ---
Author Organization [facility] Address [address] [place] [address] Care Team Providers Care Mind Reader Name Role Phone Liberty Arriaga MD Primary Care Prov ider Reason for Visit * Reason Onset Date Comments prior authorization 05/20/2025 Encounter Details Date Type Department Care Team (Late st Contact Info) Description 05/20/2025 Telephone Urogynecology - [facility] [address] [place] [phone] Leslie Templeton MD [address] [place] [address] Social History Tobacco Use Types Packs/Day Years [...] as of this encounter Progress Notes * Miranda Pacheco MA - 05/20/2025 10:45 AM EDT LUDY Chirinos requested on CMM DX Nocturia [R35.1]; Urge incontinence [N39.41]; Urinary urgency [R39.15]; Urinary frequency [R35.0] * Marilee Wilmerkadejanel - 05/20/2025 10:29 AM EDT Prior Authorization for Medication-do not complete and send this encounter unless you have the fax from the pharmacy. Is this a Cover My Meds request: Yes -- Jay Code [id number] Name of Medication Gemtesa Dose of Medication 75 MG What is the RX # from the faxed refill? How does patient take this med? Take 1 tablet (75 mg total) by mouth 1 (one) time each day. What Pharmacy did the fax come from: Not on fax Pharmacy fax #: Not on fax documented in this encounter Plan of Treatment Upcoming Encounters Date Type Department Care Team (Late st Contact Info) Description 05/30/2025 3:00 PM EST Treatment Pelvic Floor Rehabilitation - [address] [phone] Tisha Galo, PT [address] [place] [phone] 05/31/2025 2:30 PM EST Procedure visit Urogynecology - [address] [phone] Leslie Templeton MD [address] [address] 06/02/2025 5:00 PM EST Appointment Radiology Department - [address] [phone] 08/24/2025 3:15 PM EST Office Visit Urogynecology - [address] [phone] Leslie Templeton MD [address] [place] [address] 10/20/2025 2:30 PM EDT Office Visit Adult Medicine - [place] [address] [place] [address] Tip De Los Santos PA [address] [place], [place] documented as of this encounter Visit Diagnoses Not on filedocumented in this encounter Care Teams Mind Reader Relationship Specialty Start Date End Date Liberty Arriaga MD [address] [place], [place] PCP - General Internal Medicine 01/09/21 documented as of this encounter
--- OUTSIDE RECORDS SUMMARY | 2025-05-30 12:47 | XMS_ITS | Encounter Summary ---
Author Organization [facility] Address [address] [place] [address] Phone Care Team Providers Care Board Machine Set Up Operator Name Role Phone [place] Kristen Dasilva MD Primary Care Provider Liberty Arriaga MD Primary Care Pr ovider Encounter Details Date Type Department Care Team (Late st Contact Info) Description 07/12/2022 Procedure Pass OR Admitting Dept - Virtual Department [address] [place] [address] Social History Tobacco Use Types Packs/Day Years Used Date Smoking Tobacco: Never Smokeless Tobacco: Never Alcohol Use Standard Drinks/Week Comments Never 0 (1 standard drink = 0.6 oz pur e alcohol) Intimate Partner Violence Answer Date R ecorded Are you denied basic needs s [facility] as food, clothing, or medical [...] 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 Not on file Not on file documented as of this encounter Plan of Treatment Not on file documented as of this encounter Visit Diagnoses Not on filedocumented in this encounter Care Teams Board Machine Set Up Operator Relationship Specialty Start Date End Date Kristen Dow MD [address] [place] [address] PCP - General Internal Medicine 02/26/18 12/09/24 Liberty Arriaga MD [address] [place] [address] PCP - General Internal Medicine 12/10/24 documented as of this encounter Additional Source Comments The information contained in this document represents components of the legal health record. It is not the complete legal health record.[facility]
--- OUTSIDE RECORDS SUMMARY | 2025-05-30 12:47 | XMS_ITS | Encounter Summary ---
Author Organization [facility] Address [address] [place] [address] Care Team Providers Care Real Estate Appraiser Name Role Phone Liberty Arriaga MD Primary Care Prov ider Reason for Referral * Consultation (Routine) - Closed Specialty Diagnoses / Procedures Referred By Alton t Referred To Contact Allergy Diagnoses Encounter for desensitization to allergens Liberty Arriaga MD [address] [place] [address] Phone: tel: fax: Antoinette Raygoza, [address] [address] Phone: tel: Referral ID Status Reason Start Date Expiration Date V isits Requested Visits Authorized [id number] Closed Consult and Treat 04/26/2025 03/07/2026 99 99 Reason for Visit * Reason Onset Date Comments Referral 04/26/2025 Allergy Encounter Details Date Type Department Care Team ([facility] Contact Info) Description 04/26/2025 Telephone Adult Medicine - [place] [address] [place] [phone] Liberty Arriaga MD [address] [place] [address] Social History Tobacco Use Types Packs/Day Years [...] PM EST Treatment Pelvic Floor Rehabilitation - [address] [phone] Tisha Galo, PT [address] [address] 05/31/2025 2:30 PM EST Procedure visit Urogynecology - [address] [phone] Leslie Templeton MD [address] [address] 06/02/2025 5:00 PM EST Appointment Radiology Department - [address] [phone] 08/24/2025 3:15 PM EST Office Visit Urogynecology - [address] [phone] Leslie Templeton MD [address] [address] 10/20/2025 2:30 PM EDT Office Visit Adult Medicine - [place] [address] [place] [address] Tip De Los Santos PA [address] [place] [address] Scheduled Referrals Name Type Priority Associated Diagnoses Orde r Schedule Ambulatory referral to Allergy Outpatient Referral Routine Encounter for desensitization to allergens Ordered: 04/26/2025 documented as of this encounter Visit Diagnoses Diagnosis Encounter for desensitization to allergens- Primary documented in this encounter Care Teams Real Estate Appraiser Relationship Specialty Start Date End Date Liberty Arriaga MD [address] [place] [address] PCP - General Internal Medicine 01/09/21 documented as of this encounter
--- OUTSIDE RECORDS SUMMARY | 2025-05-30 12:47 | XMS_ITS | Encounter Summary ---
Author Organization [facility] Address [address] [place] [address] Care Team Providers Care Group Social Worker Name Role Phone Liberty Arriaga MD Primary Care Prov ider Encounter Details Date Type Department Care Team (Late Contact Info) Description 04/28/2025 Results Follow-Up Adult Medicine - [place] [address] [place] [address] Tip De Los Santos PA [address] [place] [address] Social History Tobacco Use Types Packs/Day Years [...] PM EST Treatment Pelvic Floor Rehabilitation - [address] [address] Tisha Galo, PT [address] [place] [phone] (Work) 05/31/2025 2:30 PM EST Procedure visit Urogynecology - [address] [phone] Leslie Templeton MD [address] [place] [address] 06/02/2025 5:00 PM EST Appointment Radiology Department - [address] [phone] 08/24/2025 3:15 PM EST Office Visit Urogynecology - [address] [phone] Leslie Templeton MD [address] [address] 10/20/2025 2:30 PM EDT Office Visit Adult Medicine - [place] [address] [place] [address] Tip De Los Santos PA [address] [place] [address] documented as of this encounter Procedures Procedure Name Priority Date/Time Associated Diagnosis Comments PAP SMEAR Routine 05/08/2022 documented in this encounter Results * Pap Smear (05/08/2022) Pap smear PAP Negative; HPV Negative us Historical Provider HEALTH MAINTENANCE Final Result documented in this encounter Visit Diagnoses Not on filedocumented in this encounter Care Teams Group Social Worker Relationship Specialty Start Date End Date Liberty Arriaga MD [address] [place] [address] PCP - General Internal Medicine 01/09/21 documented as of this encounter
== END 2025-05-30 10:41 | disposition home or self-care (01) ==
LOC: HO.HMGAL 10:41
PROVIDERS: PCP Internal Medicine; Visit Provider Registered Nurse Emergency
DX: J30.89 Other allergic rhinitis (principal)
CPT/HCPCS: 95117; 95165

== ENCOUNTER 2025-06-27 15:51 | Outpatient (AMB) | payer BC, SELFPAY ==
--- OUTSIDE RECORDS SUMMARY | 2025-06-23 15:00 | XMS_ITS | Encounter Summary ---
Author Organization [facility] Address [address] [place] [address] Care Team Providers Care Oral Pathologist Name Role Phone Liberty Arriaga MD Primary Care Prov ider Encounter Details Date Type Department Care Team (Latest Contact Info) Description 06/23/2025 3:00 PM EST Treatment Pelvic Floor Rehabilitation [address] [phone] Tisha Galo, PT [address] [place] [address] Urge urinary incontinence (Primary Dx); Urinary urgency; Urinary frequency; Nocturia; TATYANA (stress urinary incontinence, female); Muscle weakness Social History Tobacco Use Types Packs/Day Years [...] as of this encounter Progress Notes * Tisha Galo, PT - 06/23/2025 3:00 PM EST PELVIC FLOOR PHYSICAL THERAPY TREATMENT NOTE PATIENT: Reyna Hubbard : 1960 VISIT DATE: 06/23/25 VISIT NUMBER: [id number] MEDICAL/SURGICAL HISTORY: Past Medical History: No date: Abdominal cramping Comment: DX:Abdominal cramping 09/30/2017: Abnormal brain MRI Comment: DX:Abnormal brain MRI; COMMENT: Sees Dr Mukherjee. Likely meningioma 11/21/2020: Androgenic alopecia Comment: DX:Androgenic alopecia 10/19/2015: Anemia Comment: DX:Anemia 09/24/2018: Bilateral thumb pain Comment: DX:Bilateral thumb pain 03/19/2018: Class 1 obesity Comment: DX:Class 1 obesity 11/15/2015: Depression Comment: DX:Depression 10/19/2015: Dyslipidemia Comment: DX:Dyslipidemia No date: Epigastric discomfort Comment: DX:Epigastric discomfort No date: Esophageal reflux Comment: DX:Esophageal reflux No date: Gassiness Comment: DX:Gassiness No date: GERD (gastroesophageal reflux disease) Comment: DX:GERD (gastroesophageal reflux disease) No date: Globus sensation Comment: DX:Globus sensation 10/19/2015: HTN (hypertension) Comment: DX:HTN (hypertension) 03/30/2019: Hypokalemia Comment: DX:Hypokalemia 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 Home Polysomnogram: Date 02/17/2018; AHI 20, Unclassified apneas 5; Obstructive apneas 27; Central apneas 0; Mixed apneas 0; hypopneas 121; average oxygen saturation 94% (lowest 86% without saturations <88% for 5% or more of study) - Obstructive Sleep Apnea - moderate; mostly hypopneas with obstructive apneas; without sleep related hypoventilation by 2018 h* No date: PND (post-nasal drip) Comment: DX:PND (post-nasal drip) 11/15/2015: Rosacea Comment: DX:Rosacea 11/21/2020: Seasonal allergies Comment: DX:Seasonal allergies 05/05/2016: Tinea versicolor Comment: DX:Tinea versicolor No date: Uterine polyp Comment: DX:Uterine polyp 10/19/2015: Vitamin D deficiency Comment: DX:Vitamin D deficiency Surgical History[1] Allergies[2] MEDICATIONS: Medications Ordered Prior to Encounter[3] CHIEF COMPLAINT: Mixed urinary incontinence SUBJECTIVE Good. Better. FUNCTIONAL/SYMPTOM UPDATE Nocturia down to 1x/night Reduced urgency/frequency of urination TATYANA still bothersome, but not as frequent OBJECTIVE Able to engage the TrA in supine after coaching Good PF isolation in sidelying and supine INTERVENTIONS Neuromuscular Re-Education (15 minutes); Therapeutic Activity (15 minutes) - Sidelying PF activation, pt required initial cueing only to perform submax isolations. Able to progress to 3 holds with appropriate levels of fatigue reported - Supine re-ed of TrA activation, responded well when initiating with PF contraction and cues to bring the hip bones together. Massed practice. Discussed progression to sustained PF+TA activation with breathing - Sidelying clam shell with PF contraction x10 reps B - Discussed how to progress PFMEs via increased repetitions and increased hold times. Encouraged use of the knack before a cough/sneeze to help restore anticipatory PF function. Access Code: [email or web address] URL: [email or web address] Date: 06/23/2025 Prepared by: Tisha Galo Exercises - Sidelying Pelvic Floor Contraction with Self-Palpation - 2 x daily - 3 sets - 10 reps - 3 hold - Supine Transversus Abdominis Bracing with Pelvic Floor Contraction - 1 x daily - 120 hold - Sidelying Clamshell with Pelvic Floor Contraction - 1 x daily - 3 sets - 10 reps ASSESSMENT Reyna presents today reporting good response to bladder retraining and urge suppression techniques to date, with fewer instances of UUI and decreased overall urgency. She spoke to her MD and will begin taking the spironolactone in the AM instead of before bed, which should also help with nocturia. 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 Patient should continue to benefit from PT intervention to address impairments, improve function, and improve quality of life. PLAN Cont with PF strengthening, endurance, and coordination; lifestyle/behavioral modifications, bladder retraining, A total of 30 minutes was spent [id number] with the patient today. Tisha Galo, PT, DPT, PCES 06/23/25 [1] Past Surgical History: Procedure Laterality Date OTHER SURGICAL HISTORY 09/28/12 PROCEDURE: OUTSIDE PAP SMEAR [2] Allergies Allergen Reactions Famotidine Other Reports facial swelling Other Yeast Seasonal allergies Sulfamethoxazole-Trimethoprim [3] Current Outpatient Medications on File Prior to Visit Medication Sig Dispense Refill albuterol HFA (ProAir HFA) 90 mcg/actuation inhaler Inhale 2 puffs by mouth every 4 (four) hours ifneeded for wheezing. 8.5 g 0 atorvastatin (LIPITOR) 10 mg tablet Take 1 tablet (10 mg total) by mouth 1 (one) time each day. 90 each 1 cefpodoxime (VANTIN) 100 mg tablet Take 1 tablet (100 mg total) by mouth at bedtime. Take at the time of intercourse to help prevent infections 90 tablet 1 cholecalciferol (VITAMIN D-3) 25 mcg (1,000 unit) capsule Take by mouth. estradioL (ESTRACE) 0.01 % (0.1 mg/gram) vaginal cream Insert 0.5 g into the vagina 1 (one) time each day. Please place 0.5g (a pea-sized amount) on your finger and place inside the vagina for 2 weeks at night, and then twice a week at night 42.5 g 3 ketoconazole (NIZORAL) 2 % shampoo Apply topically 2 (two) times a week. Apply to damp skin, lather, leave on 5 minutes, and rinse 120 mL 1 losartan (COZAAR) 50 mg tablet Take 1 tablet (50 mg total) by mouth 1 (one) time each day. 90 each 1 MULTIVITAMIN ORAL Take by mouth. pantoprazole (PROTONIX) 20 mg EC tablet Take 1 tablet (20 mg total) by mouth 1 (one) time each day before breakfast. 90 each 1 sertraline (ZOLOFT) 50 mg tablet Take 1 tablet (50 mg total) by mouth 1 (one) time each day. 90 each 1 spironolactone (ALDACTONE) 25 mg tablet Take 1 tablet (25 mg total) by mouth 1 (one) time each day.90 each 1 vibegron (GEMTESA) 75 mg tablet tablet Take 1 tablet (75 mg total) by mouth 1 (one) time each day. 90 tablet 1 No current facility-administered medications on file prior to visit. documented in this encounter Plan of Treatment Upcoming Encounters Date Type Department Care Team (Late st Contact Info) Description 08/24/2025 3:15 PM EST Office Visit Urogynecology - [place] [address] [place] [address] Leslie Templeton MD [address] [facility] [address] [place] [address] 10/20/2025 2:30 PM EDT Office Visit Adult Medicine - [place] [address] [place] [address] Tip De Los Santos PA [address] [place], [place] documented as of this encounter Visit Diagnoses Diagnosis Urge urinary incontinence- Primary Urge incontinence Urinary urgency Urgency of urination Urinary frequency Nocturia TATYANA (stress urinary incontinence, female) Muscle weakness Muscle weakness (generalized) documented in this encounter Care Teams Oral Pathologist Relationship Specialty Start Date End Date Liberty Arriaga MD [address] [place], [place] PCP - General Internal Medicine 01/09/21 documented as of this encounter
--- OUTSIDE RECORDS SUMMARY | 2025-06-28 01:26 | XMS_ITS | Encounter Summary ---
Author Organization [facility] Address [address] [place] [address] Care Team Providers Care String Studies Director Name Role Phone Liberty Arriaga MD Primary Care Prov ider Encounter Details Date Type Department Care Team (Late Contact Info) Description 05/19/2025 Results Follow-Up Urogynecology - [address] [place] [id number] Leslie Templeton MD [address] [place] [address] [place] [address] Social History Tobacco Use Types Packs/Day Years [...] Department Care Team (Late Contact Info) Description 08/24/2025 3:15 PM EST Office Visit U[address]gynecolog[address] [phone] Leslie Templeton MD [address] [facility] [place] [address] [place] [address] 10/20/2025 2:30 PM EDT Office Visit Adult Medicine - [place] [address] [place] [address] Tip De Los Santos PA [address] [place] [address] documented as of this encounter Visit Diagnoses Not on filedocumented in this encounter Care Teams String Studies Director Relationship Specialty Start Date End Date Liberty Arriaga MD [address] [place] [address] PCP - General Internal Medicine 01/09/21 documented as of this encounter
--- OUTSIDE RECORDS SUMMARY | 2025-06-28 01:26 | XMS_ITS | Clinical Summary ---
Author Organization [facility] [address] [facility] lding Address [address] [place] [address] Phone Care Team Providers Care Safety And Health Manager Name Role Phone Liberty Arriaga MD Primary [...] s:Mild episode of recurrent major depressive disorder (CMS/[facility] V24) Take 1 tablet (50 mg total) [...] 03/19/2018 Obstructive sleep apnea 02/23/2018 Overview (06/30/2024): [facility] Home Polysomnogram: Date 02/17/2018; AHI [...] Encounters Date Type Department Care Team Description 06/23/2025 3:00 PM EST Treatment Pelvic Floor Rehabilitation - [address] [phone] Tisha Galo, PT Urge urinary incontinence (Primary Dx); Urinary urgency; Urinary frequency; Nocturia; TATYANA (stress urinary incontinence, female); Muscle weakness 06/02/2025 4:23 PM EST - 06/02/2025 11:59 PM EST Hospital Encounter Radiology Department - [address] [phone] Recurrent UTI Discharge Disposition: Home or Self Care 05/31/2025 2:30 PM EST Procedure visit Urogynecology - [address] [phone] Leslie Templeton MD Recurrent UTI (Primary Dx); Nocturia; Urge incontinence; Urinary urgency; Urinary frequency 05/30/2025 3:00 PM EST Treatment Pelvic Floor Rehabilitation - [address] [phone] Tisha Galo PT Urge urinary incontinence (Primary Dx); Urinary urgency; Urinary frequency; Nocturia; TATYANA (stress urinary incontinence, female); Muscle weakness 05/20/2025 Telephone Urogynecology - [address] [place] [address] Leslie Templeton MD 05/19/2025 Results Follow-Up Urogynecology - [address] [place] [address] Leslie Templeton MD 05/18/2025 9:00 AM EDT Office Visit Urogynecology [address] [phone] Leslie Templeton MD Urge incontinence (Primary Dx); Recurrent UTI; TATYANA (stress urinary incontinence, female); Nocturia; Urinary urgency; Urinary frequency; Genitourinary syndrome of menopause; Microscopic hematuria 04/28/2025 Results Follow-Up Adult [address] [phone] Tip De Los Santos PA 04/26/[address] [phone] Liberty Sunshine MD 04/21/2025 4:00 PM EDT Office Visit [address] [phone] Tip De Los Santos PA Dyslipidemia (Primary Dx); Acute cough; Gastroesophageal reflux disease without esophagitis; Mild episode of recurrent major depressive disorder (CMS/[facility] V24); Vitamin D deficiency; Prediabetes; Primary hypertension; Seasonal allergies; Obstructive sleep apnea 04/08/2025 Telephone Adult [address] [phone] Liberty Sunshine MD from Last 3 Months Immunizations Immunization [...] apnea 02/23/2018 DX:Obstr uctive sleep apnea; COMMENT: [facility] Home Polysomnogram: Date 02/17/2018; AHI [...] Orientation Straight 07/25/2024 11 :00 AM EST Last Filed Vital Signs Vital Sign Reading [...] 3:15 PM EST Office Visit Urogynecology - [address] [phone] Leslie Templeton MD [address] [facility] [address] [place] [address] 10/20/2025 2:30 PM EDT Office Visit Adult Medicine - [place] [address] [place] [address] Tip De Los Santos PA [address] [place] [address] Health Maintenance Due Date Last Done Comments [...] Procedure Name Priority Date/Time Associated Diagnosis Comments US RETROPERITONEAL COMPLETE Routine 06/02/2025 4:41 PM EST Recurrent UTI URINALYSIS MICROSCOPIC ONLY Routine 05/18/2025 10:08 AM [...] EDT Dyslipidemia MATUTE URINE CULTURE TUBE Routine 04/08/20 4:45 PM EDT Urinary tract infection without hematuria, site unspecified URINALYSIS WITH REFLEX MICROSCOPIC AND CULTURE Routine 04/08/2025 4:45 PM EDT Urinary tract infection without hematuria, site unspecified URINALYSIS WITH REFLEX MICROSCOPIC AND CULTURE Routine 04/08/2025 4:45 PM EDT Urinary tract infection without hematuria, site unspecified EXTERNAL MAMMOGRAM REPORT Routine 04/06/2024 9:17 AM EDT HM PAP SMEAR Routine 05/08/2022 COLONOSCOPY Routine 12/26/2020 HEPATITIS C SCREENING Routine 01/27/2017 from Last 3 Months or Most Recently Relevant to Health Maintenance Results * US Retroperitoneal Complete (06/02/2025 4:41 PM EST) Anatomical Region Laterality Modality Body Ultrasound 06/02/2025 4:42 PM EST Impressions 06/02/2025 4:43 PM EST Normal retroperitoneal ultrasound. -------- FINAL REPORT -------- Dictated By: Yasmine Umana Dictated Date: 06/02/2025 16:42 ET Assigned Physician: Yasmine Umana Reviewed and Electronically Signed By: Yasmine Umana Signed Date: 06/02/2025 16:43 ET Workstation ID: [id number] Transcribed By: Self Edit Transcribed Date: 06/02/2025 16:42 ET Narrative 06/02/2025 4:43 PM EST US RETROPERITONEAL COMPLETE HISTORY: Recurrent UTI. Febrile. Prior study: None. FINDINGS: The right kidney measures 11.3 cm in length. The left kidney measures 10.4 cm in length. Both kidneys demonstrate normal echotexture. No hydronephrosis, masses, calculi, or perinephric collections are seen. The bladder is unremarkable. Prevoid bladder volume measures 91 cc. Postvoid residual is 23 cc. Normal bilateral ureteral jets were seen in the bladder. Procedure Note Yasmine Umana MD - 06/02/2025 US RETROPERITONEAL COMPLETE HISTORY: Recurrent UTI. Febrile. Prior study: None. FINDINGS: The right kidney measures 11.3 cm in length. The left kidneymeasures 10.4 cm in length. Both kidneys demonstrate normal echotexture.No hydronephrosis, masses, calculi, or perinephric collections are seen. The bladder is unremarkable. Prevoid bladder volume measures 91 cc.Postvoid residual is 23 cc. Normal bilateral ureteral jets were seen inthe bladder. IMPRESSION: Normal retroperitoneal ultrasound. -------- FINAL REPORT -------- Dictated By: Yasmine Umana Dictated Date: 06/02/2025 16:42 ET Assigned Physician: Yasmine Umana Reviewed and Electronically Signed By: Yasmine Umana Signed Date: 06/02/2025 16:43 ET Workstation ID: [id number] Transcribed By: Self Edit Transcribed Date: 06/02/2025 16:42 ET us Leslie Templeton MD [facility] US PROCEDURES Final Result * Urinalysis microscopic only (05/18/2025 10:08 AM EDT) RBC, Urine 1.2 0 - 4 /HPF LAB URINALYSIS - AUTOMATED METHOD 05/18/2025 6:40 PM EDT [facility] WBC, Urine 0.3 0 - 4 /HPF LAB URINALYSIS - AUTOMATED METHOD 05/18/2025 6:40 PM EDT [facility] Squamous Epithelial, Urine 3 0 - 60 /LPF LAB URINALYSIS - AUTOMATED METHOD 05/18/2025 6:40 PM EDT [facility] Bacteria, Urine Negative Negative /HPF LAB URINALYSIS - AUTOMATED METHOD 05/18/2025 6:40 PM EDT [facility] Hyaline Casts, Urine 0.0 0 - 3 /LPF LAB URINALYSIS - AUTOMATED METHOD 05/18/2025 6:40 PM EDT [facility] Urine Urinary bladder structure / Unknown Non-blood Collection / Unknown 05/18/2025 10:08 AM EDT 05/18/2025 10:08 AM EDT us Leslie Templeton MD LAB URINE ORDERABLES Final Resul t [facility] [address] [place] [address], * Culture urine (05/18/2025 10:08 AM EDT) Culture, Urine No growth 05/20/2025 8:51 AM EDT [facility] Urine Urinary bladder structure / Unknown Non-blood Collection / Unknown 05/18/2025 10:08 AM EDT 05/18/2025 10:08 AM EDT us Leslie Templeton MD LAB MICROBIOLOGY - GENERAL ORDER MICHAEL Final Result [facility] [address] [place] [address], [place] [phone] * (ABNORMAL) POC Urine Auto W/O Micro (05/18/2025 10:07 AM EDT) Glucose UA POC Negative Negative, Trace mg/dL Bilirubin UA POC Negative Negative Ketones UA POC Negative Negative Specific [place] UA POC 1.025 Blood UA POC Small(A) Negative PH UA POC 7.0 Protein UA POC Negative Negative mg/dL Urobilinogen UA POC 0.2 E.U./dL 0.2 E.U./dL, 1.0 E.U./dL, 8 , Unable to interpret due to interfering substances mg/dL Nitrite UA POC Negative Negative Leukocytes UA POC Negative Negative Urine Urine specimen obtained by clean catch procedure / Unknown 05/18/2025 10:07 AM EDT us Leslie Templeton MD POINT OF CARE TEST ENTER/EDIT OR DERABLES Final Result * (ABNORMAL) Lipid panel with reflex to direct LDL (04/28/2025 8:33 AM EDT) Cholesterol 179 0 - 200 mg/dL LAB CHEMISTRY METHOD 04/28/2025 12:36 PM EDT [facility] Triglycerides 121 0 - 150 mg/dL LAB CHEMISTRY METHOD 04/28/2025 12:36 PM EDT [facility] HDL 54 >=40 mg/dL LAB CHEMISTRY METHOD 04/28/2025 12:36 PM EDT [facility] LDL Calculated 101(H) 0 - 100 mg/dL LAB CHEMISTRY METHOD 04/28/2025 12:36 PM EDT [facility] Comment:Estimated LDL Calcul ated using equation: Total cholesterol - HDL cholesterol - (Triglycerides/5) VLDL Cholesterol Kael 24.2 mg/dL LAB CHEMISTRY METHOD 04/28/2025 12:36 PM EDT [facility] Non HDL Chol. (LDL+VLDL) 125 <145 mg/dL LAB CHEMISTRY METHOD 04/28/2025 12:36 PM EDT [facility] Chol/HDL Ratio 3.3 0.0 - 4.4 LAB CHEMISTRY METHOD 04/28/2025 12:36 PM EDT [facility] Blood Venous blood specimen / Unknown Venipuncture / Unknown 04/28/2025 8:33 AM EDT 04/28/2025 8:33 AM EDT [facility] BLOOD ORDERABLES Final Res ult Performing Organization Address City/[facility]/ZIP Co de Phone Number [facility] [address] [place] [address], [place] [phone] * Hemoglobin A1c (04/28/2025 8:33 AM EDT) Hemoglobin A1C 6.2 <6.5 % LAB CHEMISTRY METHOD 04/28/2025 2:09 PM EDT [facility] Mean Bld Glu Estim. 131 mg/dL LAB CHEMISTRY METHOD 04/28/2025 2:09 PM EDT [facility] Blood Venous blood specimen / Unknown Venipuncture / Unknown 04/28/2025 8:33 AM EDT 04/28/2025 8:33 AM EDT us [facility] BLOOD ORDERABLES Final Res ult [facility] [address] [place] [address], [place] [phone] * (ABNORMAL) Comprehensive metabolic panel (04/28/2025 8:33 AM EDT) [facility] Signature Sodium 139 133 - 145 mmol/L LAB CHEMISTRY METHOD 04/28/2025 12:36 PM [facility] Potassium 4.5 3.5 - 5.5 mmol/L LAB CHEMISTRY METHOD 04/28/2025 12:36 PM [facility] Chloride 106 96 - 110 mmol/L LAB CHEMISTRY METHOD 04/28/2025 12:36 PM [facility] CO2 27 21 - 32 mmol/L LAB CHEMISTRY METHOD 04/28/2025 12:36 PM [facility] Anion Gap 6 3 - 11 LAB CHEMISTRY METHOD 04/28/2025 12:36 PM [facility] Glucose 109(H) 70 - 100 mg/dL LAB CHEMISTRY METHOD 04/28/2025 12:36 PM [facility] BUN 16 5 - 25 mg/dL LAB CHEMISTRY METHOD 04/28/2025 12:36 PM [facility] Creatinine 0.83 0.50 - 1.10 mg/dL LAB CHEMISTRY METHOD 04/28/2025 12:36 PM [facility] eGFR 80 >=60 mL/min/1. 73m2 LAB CHEMISTRY METHOD 04/28/2025 12:36 PM [facility] Comment:Calculation based on the Chronic Kidney Disease Epidemiology Collaboration (CKD-EPI) equation refit without adjustment for race. BUN/Creatinine Ratio 19.3 LAB CHEMISTRY METHOD 04/28/2025 12:36 PM [facility] Calcium 9.3 8.5 - 10.5 mg/dL LAB CHEMISTRY METHOD 04/28/2025 12:36 PM [facility] AST (SGOT) 29 10 - 42 unit/L LAB CHEMISTRY METHOD 04/28/2025 12:36 PM [facility] ALT (SGPT) 59 10 - 60 unit/L LAB CHEMISTRY METHOD 04/28/2025 12:36 PM EDT [facility] Alkaline Phosphatase 102 42 - 121 unit/L LAB CHEMISTRY METHOD 04/28/2025 12:36 PM T [facility] Total Protein 7.2 6.0 - 8.0 g/dL LAB CHEMISTRY METHOD 04/28/2025 12:36 PM [facility] Albumin 4.0 3.2 - 5.0 g/dL LAB CHEMISTRY METHOD 04/28/2025 12:36 PM T [facility] Total Bilirubin 0.4 0.0 - 1.4 mg/dL LAB CHEMISTRY METHOD 04/28/2025 12:36 PM T [facility] Blood Venous blood specimen / Unknown Venipuncture / Unknown 04/28/2025 8:33 AM EDT 04/28/2025 8:33 AM EDT [facility] BLOOD ORDERABLES Final Res ult [facility] [address] [place] [address], [place] [phone] * (ABNORMAL) Urinalysis with reflex microscopic and culture (04/08/2025 4:45 PM EDT) Specific [place] Urine 1.025 1.003 - 1.030 LAB URINALYSIS - AUTOMATED METHOD 04/08/2025 9:44 PM [facility] pH, Urine 6.0 5.0 - 8.0 pH LAB URINALYSIS - AUTOMATED METHOD 04/08/2025 9:44 PM [facility] Leukocytes, Urine Negative Negative LAB URINALYSIS - AUTOMATED METHOD 04/08/2025 9:44 PM [facility] Nitrite, Urine Negative Negative LAB URINALYSIS - AUTOMATED METHOD 04/08/2025 9:44 PM [facility] Protein, Urine Negative <=Trace mg/dL LAB URINALYSIS - AUTOMATED METHOD 04/08/2025 9:44 PM EDT [facility] Glucose, Urine Negative Negative mg/dL LAB URINALYSIS - AUTOMATED METHOD 04/08/2025 9:44 PM [facility] Ketones, Urine Negative Negative mg/dL LAB URINALYSIS - AUTOMATED METHOD 04/08/2025 9:44 PM [facility] Urobilinogen , Urine 0.2 0.2 - 1.0 mg/dL LAB URINALYSIS - AUTOMATED METHOD 04/08/2025 9:44 PM [facility] Bilirubin, Urine Negative Negative LAB URINALYSIS - AUTOMATED METHOD 04/08/2025 9:44 PM [facility] Blood, Urine Trace(A) Negative LAB URINALYSIS - AUTOMATED METHOD 04/08/2025 9:44 PM [facility] RBC, Urine 10(H) 0 - 4 /HPF 04/08/2025 9:44 PM [facility] WBC, Urine 1 0 - 4 /HPF 04/08/2025 9:44 PM [facility] Squamous Epithelial, Urine 1 0 - 60 /LPF 04/08/2025 9:44 PM [facility] Non-Squamous Epithelial, Urine Rare Transitional epithelial cells. /LPF 04/08/2025 9:44 PM [facility] Bacteria, Urine Negative Negative /HPF 04/08/2025 9:44 PM [facility] Hyaline Casts, Urine 1 0 - 3 /LPF 04/08/2025 9:44 PM [facility] Urine Urine specimen obtained by clean catch procedure / Unknown Non-blood Collection / Unknown 04/08/2025 4:45 PM EDT 04/08/2025 4:45 PM EDT us [facility] LAB URINE ORDERABLES Final Result Performing Organization Address City/[facility]/ZIP Co de Phone Number [facility] [address] [place] [address], * Matute urine culture tube (04/08/2025 4:45 PM EDT) [facility] Extra Tube Hold for add-ons. 04/08/2025 6:01 PM EDT [facility] Comment:Auto resulted. Urine Urine specimen obtained by clean catch procedure / Unknown Non-blood Collection / Unknown 04/08/2025 4:45 PM EDT 04/08/2025 4:45 PM EDT [facility] URINE ORDERABLES Final Result Performing Organization Address [facility]/ZIP Co de Phone Number [facility] [address] [place] [address], * External Mammogram Report (04/06/2024 9:17 AM EDT) Anatomical Region Laterality Modality Mammography Historical Provider IMG BI PROCEDURES Final R esult * Pap Smear (05/08/2022) [facility] Pap smear PAP Negative; HPV Negative [facility] Provider HEALTH MAINTENANCE Final Result * Colonoscopy (12/26/2020) [facility] Colonoscopy no interpretation , abstracted Anatomical Region Laterality Modality Other Historical Provider HEALTH MAINTENANCE Final Result * Hepatitis C Screening (01/27/2017) [facility] Hepatitis C Screening Abstracted Historical Provider HEALTH MAINTENANCE Final Result from Last 3 Months or Most Recently Relevant to Health Maintenance Insurance [facility] Care Teams Safety And Health Manager Relationship Specialty Start Date End Date Liberty Arriaga MD [address] [place] [phone] PCP - General Internal Medicine 01/09/21
--- OUTSIDE RECORDS SUMMARY | 2025-06-28 01:27 | XMS_ITS | Encounter Summary ---
Author Organization [facility] Address [address] [place] [address] Phone Care Team Providers Care Garnett Mechanic Name Role Phone Carney Kristen Dasilva MD Primary Care Provider Liberty Arriaga MD Primary Care Pr ovider Encounter Details Date Type Department Care Team (Late st Contact Info) Description 07/12/2022 Procedure Pass OR Admitting Dept - Virtual Department [address] [place] [address] Social History Tobacco Use Types Packs/Day Years Used Date Smoking Tobacco: Never Smokeless Tobacco: Never Alcohol Use Standard Drinks/Week Comments Never 0 (1 standard drink = 0.6 oz pur e alcohol) Intimate Partner Violence Answer Date R ecorded Are you denied basic needs s [facility] as food, clothing, or medical care? 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 Not on file Not on file documented as of this encounter Plan of Treatment Not on file documented as of this encounter Visit Diagnoses Not on filedocumented in this encounter Care Teams Garnett Mechanic Relationship Specialty Start Date End Date Kristen Dow MD [address] [place] [phone] PCP - General Internal Medicine 02/26/18 12/09/24 Liberty Arriaga MD [address] [place] [address] PCP - General Internal Medicine 12/10/24 documented as of this encounter Additional Source Comments The information contained in this document represents components of the legal health record. It is not the complete legal health record.[facility]
--- OUTSIDE RECORDS SUMMARY | 2025-06-28 01:27 | XMS_ITS | Clinical Summary ---
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 PAP SMEAR [...] 52, 56, 58, 59, 66, 68) by [email or web address] HR-HPV analysis. Clinical correlation is advised. This HPV test was performed at [facility], [address] [place] [address]. This test has been FDA approved for [facility] cervical cytology specimens. The accuracy and precision of this test for all other specimen sources has been verified in the Cytopathology Laboratory of the [facility] and has not been cleared or approved by the U.S. Food and Drug Administration. Clinical correlation is advised. CLINICAL HISTORY Date of Last Menstrual Period: Not Provided Menstrual History: Post Menopausal Bleeding, PM Other Clinical Conditions: Screening Pap SPECIMEN SOURCE A: PAP SMEAR (SUREPATH) CE Patient Name: REYNA DELEON : 1960 (Age: 61) Sex: F Institution: [facility] Location: [facility] Date of Collection: 05/08/2022 Date of Reported: 05/17/2022 11:35 Results to: Vijay Shaw MD, BS us Vijay Shaw MD CYTOLOGY ORDERABLES Final Res ult SEE NARRATIVE * HM MAMMOGRAPHY FOR RESULT ENTRY ONLY (03/28/2020) us Alejandrina Crump MD HEALTH MAINTENANCE F inal Result from Last 3 Months or Most Recently Relevant to Health Maintenance Insurance [facility] Address: [facility] [id number] [place] [address] [facility] Address: [facility] [id number] [place] [address] [facility] Address: [facility] [id number] [place] [address] [facility] Advance Directives For more information, please contact: [phone] (9AM - 5PM [facility], Friday-Friday) Documents on File Type Date Recorded Patient Chief Electrician Expl anation Healthcare Proxy 07/17/2022 1:13 PM * Full Code (Latest Code Status on File) Date Activated Date Inactivated Comments 07/12/2022 9:16 AM Question Answer Comments Code Status Confirmed With: Patient Care Teams Patient Navigator Relationship Specialty Start Date End Date Liberty Arriaga MD [address] [place] [phone] PCP - General Internal Medicine 12/10/24 Additional Source Comments The information contained in this document represents components of the legal health record. It is not the complete legal health record.[facility]
--- OUTSIDE RECORDS SUMMARY | 2025-06-28 01:27 | XMS_ITS | Encounter Summary ---
Author Organization [facility] Address [address] [place] [address] Care Team Providers Care Studio Control Operator Name Role Phone Liberty Arriaga MD Primary Care Prov ider Encounter Details Date Type Department Care Team (Late Contact Info) Description 04/28/2025 Results Follow-Up Adult Medicine [facility] [address] [place] [address] Tip De Los Santos PA [address] [place] [address] Social History Tobacco Use Types Packs/Day Years [...] 08/24/2025 3:15 PM EST Office Visit Urogynecology [address] [phone] Leslie Templeton MD [address] [place] [address] 10/20/2025 2:30 PM EDT Office Visit Adult Medicine - [place] [address] [place] [address] Tip De Los Santos PA [address] [place] [address] documented as of this encounter Procedures Procedure Name Priority Date/Time Associated Diagnosis Comments PAP SMEAR Routine 05/08/2022 documented in this encounter Results * Pap Smear (05/08/2022) Pap smear PAP Negative; HPV Negative us Historical Provider HEALTH MAINTENANCE Final Result documented in this encounter Visit Diagnoses Not on filedocumented in this encounter Care Teams Studio Control Operator Relationship Specialty Start Date End Date Liberty Arriaga MD [address] [place] [address] PCP - General Internal Medicine 01/09/21 documented as of this encounter
== END 2025-06-27 15:53 | disposition home or self-care (01) ==
LOC: HO.HMGAL 15:51
PROVIDERS: PCP Internal Medicine; Visit Provider Registered Nurse Emergency
DX: J30.89 Other allergic rhinitis (principal)
CPT/HCPCS: 95117; 95165

== ENCOUNTER 2025-07-11 08:15 | Outpatient (AMB) | payer BC, SELFPAY ==
--- OUTSIDE RECORDS SUMMARY | 2025-07-11 08:18 | XMS_ITS | Clinical Summary ---
Author Organization [facility] [address] [facility] [address] Address [address] [place] [address] Phone Care Team Providers Care Zinc Plating Machine Operator Name Role Phone Liberty Arriaga [...] s:Mild episode of recurrent major depressive disorder (CMS/[facility] V24) Take 1 tablet (50 mg [...] 03/19/2018 Obstructive sleep apnea 02/23/2018 Overview (06/30/2024): [facility] Home Polysomnogram: Date 02/17/2018; AHI 20, [...] PM EST Treatment Pelvic Floor Rehabilitation - [address] [phone] Tisha Galo, PT Urge urinary incontinence (Primary Dx); Urinary urgency; Urinary frequency; Nocturia; TATYANA (stress urinary incontinence, female); Muscle weakness 06/02/2025 4:23 PM EST - 06/02/2025 11:59 PM EST Hospital Encounter Radiology Department - [address] [phone] Recurrent UTI Discharge Disposition: Home or Self Care 05/31/2025 2:30 PM EST Procedure visit Urogynecology - [address] [phone] Leslie Templeton MD Recurrent UTI (Primary Dx); Nocturia; Urge incontinence; Urinary urgency; Urinary frequency 05/30/2025 3:00 PM EST Treatment Pelvic Floor Rehabilitation - [address] [phone] Tisha Galo PT Urge urinary incontinence (Primary Dx); Urinary urgency; Urinary frequency; Nocturia; TATYANA (stress urinary incontinence, female); Muscle weakness 05/20/2025 Telephone Urogynecology - [address] [place] [address] Leslie Templeton MD 05/19/2025 Results Follow-Up Urogynecology - [address] [place] [address] Leslie Templeton MD 05/18/2025 9:00 AM EDT Office Visit Urogynecology [address] [phone] Leslie Templeton MD Urge incontinence (Primary Dx); Recurrent UTI; TATYANA (stress urinary incontinence, female); Nocturia; Urinary urgency; Urinary frequency; Genitourinary syndrome of menopause; Microscopic hematuria 04/28/2025 Results Follow-Up Adult [address] [phone] Tip De Los Santos PA 04/26/2025 Telephone Adult [address] [phone] Liberty Sunshine MD 04/21/2025 4:00 PM EDT Office Visit Adult [address] [phone] Tip De Los Santos PA Dyslipidemia (Primary Dx); Acute cough; Gastroesophageal reflux disease without esophagitis; Mild episode of recurrent major depressive disorder (CMS/[facility] V24); Vitamin D deficiency; Prediabetes; Primary hypertension; Seasonal allergies; Obstructive sleep apnea from Last 3 Months Immunizations Immunization Administration Dates Next Due Influenza trivalent, 0.5mL, preservative free (Fluarix; FluLaval; Fluzone) ages 6mo and older (Afluria) 3 years and older 06/01/2020 Influenza, Unspecified 04/03/2022,06/04/2021,04/2018 Pfizer (ages 12 & older) Bivalent, COVID-19 04/21 Mlog SARS-CoV-2 COVID-19, mRNA, LNP-S, preservative free 06/30/2021 [...] apnea 02/23/2018 DX:Obstr uctive sleep apnea; COMMENT: [facility] Home Polysomnogram: Date 02/17/2018; AHI 20, [...] 3:15 PM EST Office Visit Urogynecology - [address] [phone] Leslie Templeton MD [address] [place] [address] 09/01/2025 3:00 PM EST Treatment Pelvic Floor Rehabilitation - [address] [phone] Tisha Galo, PT [address] [phone] 10/20/2025 2:30 PM EDT Office Visit Adult Medicine - [place] [address] [place] [phone] Tip De Los Santos PA [address] [place] [address] Health Maintenance Due Date Last Done Comments [...] LDL Routine 04/28/2025 8:33 AM EDT Dyslipidemia EXTERNAL MAMMOGRAM REPORT Routine 04/06/2024 9:17 AM [...] Signed Date: 06/02/2025 16:43 ET Workstation ID: [id number] Transcribed By: Self Edit Transcribed Date: 06/02/2025 [...] Signed Date: 06/02/2025 16:43 ET Workstation ID: [id number] Transcribed By: Self Edit Transcribed Date: 06/02/2025 16:42 ET us Leslie Templeton MD [facility] [place]ED[place] Final Result * Urinalysis microscopic only (05/18/2025 10:08 AM EDT) RBC, Urine 1.2 0 - 4 /HPF LAB URINALYSIS - AUTOMATED METHOD 05/18/2025 6:40 PM EDT [facility] WBC, Urine 0.3 0 - 4 /HPF LAB URINALYSIS - AUTOMATED METHOD 05/18/2025 6:40 PM EDT [facility] Squamous Epithelial, Urine 3 0 - 60 /LPF LAB URINALYSIS - AUTOMATED METHOD 05/18/2025 6:40 PM EDT [facility] Bacteria, Urine Negative Negative /HPF LAB URINALYSIS - AUTOMATED METHOD 05/18/2025 6:40 PM EDT [facility] Hyaline Casts, Urine 0.0 0 - 3 /LPF LAB URINALYSIS - AUTOMATED METHOD 05/18/2025 6:40 PM EDT [facility] Urine Urinary bladder structure / Unknown Non-blood Collection / Unknown 05/18/2025 10:08 AM EDT 05/18/2025 10:08 AM EDT Leslie Templeton MD LAB URINE ORDERABLES Final Resul t Performing Organization Address [facility]/ZIP Al de Phone Number [facility] [address] [place] [address], * Culture urine (05/18/2025 10:08 AM EDT) Culture, Urine No growth 05/20/2025 8:51 AM EDT [facility] Urine Urinary bladder structure / Unknown Non-blood Collection / Unknown 05/18/2025 10:08 AM EDT 05/18/2025 10:08 AM EDT Leslie Templeton MD LAB MICROBIOLOGY - GENERAL ORDER MICHAEL Final Result [facility] [address] [place] [address], [place] [phone] * (ABNORMAL) POC Urine Auto W/O Micro (05/18/2025 10:07 AM EDT) Pathologist [facility] Glucose UA POC Negative Negative, Trace mg/dL Bilirubin UA POC Negative Negative Ketones UA POC Negative Negative Specific [place] UA POC 1.025 Blood UA POC Small(A) [...] to direct LDL (04/28/2025 8:33 AM EDT) Pathologist [facility] Cholesterol 179 0 - 200 mg/dL LAB CHEMISTRY METHOD 04/28/2025 12:36 PM EDT [facility] Triglycerides 121 0 - 150 mg/dL LAB CHEMISTRY METHOD 04/28/2025 12:36 PM EDT [facility] HDL 54 >=40 mg/dL LAB CHEMISTRY METHOD 04/28/2025 12:36 PM EDT [facility] LDL Calculated 101(H) 0 - 100 mg/dL LAB CHEMISTRY METHOD 04/28/2025 12:36 PM EDT [facility] Comment:Estimated LDL Calcul ated using equation: Total cholesterol - HDL cholesterol - (Triglycerides/5) VLDL Cholesterol Kael 24.2 mg/dL LAB CHEMISTRY METHOD 04/28/2025 12:36 PM EDT [facility] Non HDL Chol. (LDL+VLDL) 125 <145 mg/dL LAB CHEMISTRY METHOD 04/28/2025 12:36 PM EDT [facility] Chol/HDL Ratio 3.3 0.0 - 4.4 LAB CHEMISTRY METHOD 04/28/2025 12:36 PM EDT [facility] Blood Venous blood specimen / Unknown Venipuncture / Unknown 04/28/2025 8:33 AM EDT 04/28/2025 8:33 AM EDT [facility] BLOOD ORDERABLES Final Res ult Performing Organization Address City/[facility]/ZIP Co de Phone Number [facility] [address] [place] [address], [place] [phone] * Hemoglobin A1c (04/28/2025 8:33 AM EDT) Hemoglobin A1C 6.2 <6.5 % LAB CHEMISTRY METHOD 04/28/2025 2:09 PM EDT [facility] Mean Bld Glu Estim. 131 mg/dL LAB CHEMISTRY METHOD 04/28/2025 2:09 PM EDT [facility] Blood Venous blood specimen / Unknown Venipuncture / Unknown 04/28/2025 8:33 AM EDT 04/28/2025 8:33 AM EDT us [facility] BLOOD ORDERABLES Final Res ult Performing Organization Address City/[facility]/ZIP Co de Phone Number [facility] [address] [place] [address], [place] [phone] * (ABNORMAL) Comprehensive metabolic panel (04/28/2025 8:33 AM EDT) Sodium 139 133 - 145 mmol/L LAB CHEMISTRY METHOD 04/28/2025 12:36 PM EDT [facility] Potassium 4.5 3.5 - 5.5 mmol/L LAB CHEMISTRY METHOD 04/28/2025 12:36 PM [facility] Chloride 106 96 - 110 mmol/L LAB CHEMISTRY METHOD 04/28/2025 12:36 PM [facility] CO2 27 21 - 32 mmol/L LAB CHEMISTRY METHOD 04/28/2025 12:36 PM [facility] Anion Gap 6 3 - 11 LAB CHEMISTRY METHOD 04/28/2025 12:36 PM [facility] Glucose 109(H) 70 - 100 mg/dL LAB CHEMISTRY METHOD 04/28/2025 12:36 PM [facility] BUN 16 5 - 25 mg/dL LAB CHEMISTRY METHOD 04/28/2025 12:36 PM [facility] Creatinine 0.83 0.50 - 1.10 mg/dL LAB CHEMISTRY METHOD 04/28/2025 12:36 PM [facility] eGFR 80 >=60 mL/min/1. 73m2 LAB CHEMISTRY METHOD 04/28/2025 12:36 PM [facility] Comment:Calculation based on the Chronic Kidney Disease Epidemiology Collaboration (CKD-EPI) equation refit without adjustment for race. BUN/Creatinine Ratio 19.3 LAB CHEMISTRY METHOD 04/28/2025 12:36 PM [facility] Calcium 9.3 8.5 - 10.5 mg/dL LAB CHEMISTRY METHOD 04/28/2025 12:36 PM [facility] AST (SGOT) 29 10 - 42 unit/L LAB CHEMISTRY METHOD 04/28/2025 12:36 PM [facility] ALT (SGPT) 59 10 - 60 unit/L LAB CHEMISTRY METHOD 04/28/2025 12:36 PM [facility] Alkaline Phosphatase 102 42 - 121 unit/L LAB CHEMISTRY METHOD 04/28/2025 12:36 PM [facility] Total Protein 7.2 6.0 - 8.0 g/dL LAB CHEMISTRY METHOD 04/28/2025 12:36 PM EDT [facility] Albumin 4.0 3.2 - 5.0 g/dL LAB CHEMISTRY METHOD 04/28/2025 12:36 PM EDT [facility] Total Bilirubin 0.4 0.0 - 1.4 mg/dL LAB CHEMISTRY METHOD 04/28/2025 12:36 PM EDT [facility] Blood Venous blood specimen / Unknown Venipuncture / Unknown 04/28/2025 8:33 AM EDT 04/28/2025 8:33 AM EDT [facility] BLOOD ORDERABLES Final Res ult [facility]) [facility] [address] [place] [address], [place] [phone] * External Mammogram Report (04/06/2024 9:17 AM EDT) Anatomical Region Laterality Modality Mammography Historical Provider IMG BI PROCEDURES Final R esult * Pap Smear (05/08/2022) Pap smear PAP Negative; HPV Negative Historical Provider HEALTH MAINTENANCE Final Result * Colonoscopy (12/26/2020) Colonoscopy no interpretation , abstracted Anatomical Region Laterality Modality Other Historical Provider HEALTH MAINTENANCE Final Result * Hepatitis C Screening (01/27/2017) Pathologist [facility] Hepatitis C Screening Abstracted Historical Provider HEALTH MAINTENANCE Final Result from Last 3 Months or Most Recently Relevant to Health Maintenance Insurance [facility] Care Teams Zinc Plating Machine Operator Relationship Specialty Start Date End Date Liberty Arriaga MD [address] [place] [phone] PCP - General Internal Medicine 01/09/21
--- OUTSIDE RECORDS SUMMARY | 2025-07-11 08:18 | XMS_ITS | Encounter Summary ---
Author Organization [facility] Address [address] [place] [address] Care Team Providers Care Electroless Plater Name Role Phone Liberty Arriaga MD Primary Care Prov ider Encounter Details Date Type Department Care Team (Late Contact Info) Description 05/19/2025 Results Follow-Up Urogynecology - [address] [place] [phone] Leslie Templeton MD [address] [place] [address] Social History Tobacco Use Types Packs/Day Years [...] Description 08/24/2025 3:15 PM EST Office Visit Urogynec[address] [phone] Leslie Templeton MD [address] [address] 09/01/2025 3:00 PM EST Treatment Pelvic Floor Rehabilitation - [address] [phone] Tisha Galo, PT [address] [address] 10/20/2025 2:30 PM EDT Office Visit Adult Medicine - [place] [address] [place] [address] Tip De Los Santos PA [address] [place] [address] documented as of this encounter Visit Diagnoses Not on filedocumented in this encounter Care Teams Electroless Plater Relationship Specialty Start Date End Date Liberty Arriaga MD [address] [place] [phone] PCP - General Internal Medicine 01/09/21 documented as of this encounter
--- OUTSIDE RECORDS SUMMARY | 2025-07-11 08:19 | XMS_ITS | Encounter Summary ---
Author Organization [facility] Address [address] [place] [address] Phone Care Team Providers Care It Project Coordinator Name Role Phone Erie Kristen aDsilva MD Primary Care Provider Liberty Arriaga MD Primary Care Pr ovider Encounter Details Date Type Department Care Team (Late st Contact Info) Description 07/12/2022 Procedure Pass OR Admitting Dept - Virtual Department [address] [place] [address] Social History Tobacco Use Types Packs/Day Years Used Date Smoking Tobacco: Never Smokeless Tobacco: Never Alcohol Use Standard Drinks/Week Comments Never 0 (1 standard drink = 0.6 oz pur e alcohol) Intimate Partner Violence Answer Date R ecorded Are you denied basic needs s [facility] as food, clothing, or medical care? 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 Not on file Not on file documented as of this encounter Plan of Treatment Not on file documented as of this encounter Visit Diagnoses Not on filedocumented in this encounter Care Teams It Project Coordinator Relationship Specialty Start Date End Date Kristen Dow MD [address] [place] [phone] PCP - General Internal Medicine 02/26/18 12/09/24 Liberty Arriaga MD [address] [place] [address] PCP - General Internal Medicine 12/10/24 documented as of this encounter Additional Source Comments The information contained in this document represents components of the legal health record. It is not the complete legal health record.[facility]
--- OUTSIDE RECORDS SUMMARY | 2025-07-11 08:19 | XMS_ITS | Clinical Summary ---
Author Organization 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 PAP SMEAR [...] 52, 56, 58, 59, 66, 68) by [employer] HR-HPV analysis. Clinical correlation is advised. This HPV test was performed at [facility], [address] [place] [address]. This test has been FDA approved for [employer] cervical cytology specimens. The accuracy and precision of this test for all other specimen sources has been verified in the Cytopathology Laboratory of the [facility] and has not been cleared or approved by the U.S. Food and Drug Administration. Clinical correlation is advised. CLINICAL HISTORY Date of Last Menstrual Period: Not Provided Menstrual History: Post Menopausal Bleeding, PM Other Clinical Conditions: Screening Pap SPECIMEN SOURCE A: PAP SMEAR (SUREPATH) CE Patient Name: EDWARD DELEON : 1960 (Age: 61) Sex: F Institution: [facility] Location: [facility] Date of Collection: 05/08/2022 Date of Reported: 05/17/2022 11:35 Results to: Vijay Shaw MD, BS us Vijay Shaw MD CYTOLOGY ORDERABLES Final Res ult SEE NARRATIVE * HM MAMMOGRAPHY FOR RESULT ENTRY ONLY (03/28/2020) us Alejandrina Crump MD HEALTH MAINTENANCE F inal Result from Last 3 Months or Most Recently Relevant to Health Maintenance Insurance [facility] Address: [address] [id number] [place] [address] [facility] Address: [address] [id number] [place] [address] [facility] Address: [address] [place] [address] [facility] Advance Directives For more information, please contact: [phone] (9AM - 5PM [facility], Friday-Friday) Documents on File Type Date Recorded Patient Hotbed Transfer Operator Expl anation Healthcare Proxy 07/17/2022 1:13 PM * Full Code (Latest Code Status on File) Date Activated Date Inactivated Comments 07/12/2022 9:16 AM Question Answer Comments Code Status Confirmed With: Patient Care Teams Global Transportation Manager Relationship Specialty Start Date End Date Liberty Arriaga MD [address] [place] [phone] PCP - General Internal Medicine 12/10/24 Additional Source Comments The information contained in this document represents components of the legal health record. It is not the complete legal health record.[facility]
== END 2025-07-11 08:23 | disposition home or self-care (01) ==
LOC: HO.HMGAL 08:15
PROVIDERS: PCP Internal Medicine; Visit Provider Registered Nurse Emergency
DX: J30.89 Other allergic rhinitis (principal)
CPT/HCPCS: 95117; 95165